=== PATIENT | male | born 1955 | race Caucasian/White ===

== ENCOUNTER 2016-04-30 09:26 | Emergency (ER) | payer MEDICARE, BC ==
[2016-04-30 09:58] VITALS: BP 132/87
--- NOTE | 2016-04-30 10:12 | UC ---
Throat Pain/Nasal Richard HPI - HPI Summary HPI Summary: Patient was treated for a sinus infection with doxycycline for 5 days. he feels like it was working but still having symptoms, head pressure, post nasal drip and full ears. - History of Current Complaint Chief Complaint: UCRespiratory Stated Complaint: SINUS COMPLAINT Time Seen by Provider: 04/30/16 09:49 Hx Obtained From: Patient Onset/Duration: Gradual Onset, Lasting Days Severity: Moderate Pain Intensity: 6 Pain Scale Used: 0-10 Numeric Cough: Productive Associated Signs & Symptoms: Positive: Dysphagia, Sinus Discomfort, Nasal Discharge - Epiglottits Risk Factors Epiglottis Risk Factors: Negative - Allergies/Home Medications Allergies/Adverse Reactions: Allergies Allergy/AdvReac Type Severity Reaction Status Date / Time Morphine Allergy Severe Headache Verified 04/30/16 09:49 Calcium Channel Blockers Allergy pounding Verified 04/30/16 09:49 heart Atomoxetine [From Strattera] AdvReac Severe confusion Verified 04/30/16 09:49 Tolterodine [From Detrol] AdvReac Severe hypotension Verified 04/30/16 09:49 Trazodone AdvReac Severe confusion Verified 04/30/16 09:49 Codeine AdvReac Intermediate chest Verified 04/30/16 09:49 strictures Oxycodone [From Percocet] AdvReac Agitation Verified 04/30/16 09:49 Serotonin Reuptake Inhibitors AdvReac Anxiety Verified 04/30/16 09:49 Tricyclic Antidepressants AdvReac chest Verified 04/30/16 09:49 strictures stimulant Allergy Anxiety Uncoded 04/30/16 09:49 PMH/Surg Hx/FS Hx/Imm Hx Previously Healthy: Yes Endocrine History Of: Denies: Diabetes, Thyroid Disease Cardiovascular History Of: Reports: Hypertension Denies: Cardiac Disorders, Pacemaker/ICD, Congestive Heart Failure Respiratory History Of: Denies: COPD, Asthma GI/ History Of: Reports: Gastroesophageal Reflux, Gastrointestinal Bleed, Gall Bladder Disease Denies: Ulcer, Renal Disease Neurological History Of: Denies: CVA, Dementia, Seizures Psychological History Of: Reports: Anxiety Other History Of: Negative For: Anticoagulant Therapy - Surgical History Surgical History: Yes Surgery Procedure, Year, and Place: cholecystectomy, shoulder, nose, hernia rpr 2016 - Family History Known Family History: Positive: Cardiac Disease - atherosclerosis, Hypertension , Diabetes, Other - hyperlipidemia, cancer - Social History Alcohol Use: None Substance Use Type: None, Prescribed Substance Use Comment - Amount & Last Used: hydromorphone 2mg po. Smoking Status (MU): Former Smoker Length of Time of Smoking/Using Tobacco: AGE [age] When Did the Patient Quit Smoking/Using Tobacco: AGE 21 - Immunization History Most Recent Influenza Vaccination: NOT LAST YEAR Most Recent Tetanus Shot: UNSURE Most Recent Pneumonia Vaccination: no Review of Systems Constitutional: Fatigue Skin: Negative Eyes: Negative ENT: Sore Throat, Ear Ache, Nasal Discharge Respiratory: Cough Cardiovascular: Negative Gastrointestinal: Negative Genitourinary: Negative Motor: Negative Neurovascular: Negative Musculoskeletal: Negative Neurological: Headache Psychological: Negative All Other Systems Reviewed And Are Negative: Yes Physical Exam Triage Information Reviewed: Yes Appearance: Well-Nourished, Ill-Appearing, Pain Distress Vital Signs: Initial Vital Signs Temp 98.2 F 04/30/16 09:50 Pulse 64 04/30/16 09:50 Resp 18 04/30/16 09:50 BP 132/87 04/30/16 09:50 Pulse Ox 100 04/30/16 09:50 Vital Signs Reviewed: Yes Eye Exam: Normal Eyes: Positive: Conjunctiva Clear ENT: Positive: Pharyngeal erythema - with posterior exudate, Nasal congestion, Nasal drainage, TM bulging, Tonsillar swelling Dental Exam: Normal Neck exam: Normal Neck: Positive: Supple, Nontender, No Lymphadenopathy Respiratory Exam: Normal Respiratory: Positive: Chest non-tender, Lungs clear, Normal breath sounds Cardiovascular Exam: Normal Cardiovascular: Positive: RRR, No Murmur, Pulses Normal Abdominal Exam: Normal Abdomen Description: Positive: Nontender, No Organomegaly, Soft Bowel Sounds: Positive: Present Musculoskeletal Exam: Normal Musculoskeletal: Positive: Strength Intact, ROM Intact, No Edema Neurological Exam: Normal Neurological: Positive: Alert, Muscle Tone Normal Psychological Exam: Normal Skin Exam: Normal Throat Pain/Nasal Course/Dx - Course Course Of Treatment: hx obtained, exam perfromed, medications reviewed, medications presrcibed, educated on manual sinus drainage. - Differential Dx/Diagnosis Differential Diagnosis/HQI/PQRI: Influenza, Laryngitis, Otitis Media, Pharyngitis, Sinusitis, Tonsillitis, URI Provider Diagnoses: sinusitis Discharge - Discharge Plan Condition: Stable Disposition: HOME Prescriptions: DOXYcycline CAP(*) [DOXYcycline 100MG CAP(*)] 100 mg PO BID #10 cap predniSONE TAB* [Deltasone TAB*] 40 mg PO DAILY #10 tab Patient Education Materials: Sinusitis (ED) Additional Instructions: I have extended the course of doxycycline for your infection. add the prednisone daily for the next 5 days. Increase your fluid intake and use tylenol for pain.
== END 2016-04-30 10:28 | disposition home or self-care (01) ==
LOC: UCEAST 09:26
DX: J32.9 Chronic sinusitis, unspecified (principal); Z88.6 Allergy status to analgesic agent; Z88.8 Allergy status to other drugs, medicaments and biological substances; Z87.891 Personal history of nicotine dependence
CPT/HCPCS: 99211; G0463

== ENCOUNTER 2016-05-16 22:04 | Emergency (ER) | payer MEDICARE, BC ==
--- NOTE | 2016-05-16 22:52 | ED ---
Lower Extremity - HPI Summary HPI Summary: The patient is a 60 year old male presenting to ED for atraumatic left posterior knee pain which began this afternoon. Denies vigorous activity or blunt trauma. Pain worse with weight bearing and ambulation. Admits to mild swelling. Denies fever, chest pain, shortness of breath, hemoptysis, lightheadedness, syncope, joint redness or swelling, rash. History of fatty liver, splenomegaly, HTN, GERD, PUD, chronic cough. S/p herniorrhaphy 2016. FH of multiple family members with pulmonary emboli. SH: Former smoker. No recreational substance use. - History of Current Complaint Chief Complaint: EDExtremityLower Stated Complaint: LEFT LEG PAIN Time Seen by Provider: 05/16/16 22:32 Pain Intensity: 2 - Allergies/Home Medications Allergies/Adverse Reactions: Allergies Allergy/AdvReac Type Severity Reaction Status Date / Time Morphine Allergy Severe Headache Verified 04/30/16 09:49 Calcium Channel Blockers Allergy pounding Verified 04/30/16 09:49 heart Atomoxetine [From Strattera] AdvReac Severe confusion Verified 04/30/16 09:49 Tolterodine [From Detrol] AdvReac Severe hypotension Verified 04/30/16 09:49 Trazodone AdvReac Severe confusion Verified 04/30/16 09:49 Codeine AdvReac Intermediate chest Verified 04/30/16 09:49 strictures Oxycodone [From Percocet] AdvReac Agitation Verified 04/30/16 09:49 Serotonin Reuptake Inhibitors AdvReac Anxiety Verified 04/30/16 09:49 Tricyclic Antidepressants AdvReac chest Verified 04/30/16 09:49 strictures stimulant Allergy Anxiety Uncoded 04/30/16 09:49 PMH/Surg Hx/FS Hx/Imm Hx Endocrine/Hematology History: Denies: Hx Anticoagulant Therapy, Hx Diabetes, Hx Thyroid Disease Cardiovascular History: Reports: Hx Hypertension Denies: Hx Congestive Heart Failure, Hx Pacemaker/ICD Respiratory History: Reports: Hx Chronic Bronchitis, Hx Seasonal Allergies, Other Respiratory Problems/Disorders - pleurisy, Swine flu Denies: Hx Asthma, Hx Chronic Obstructive Pulmonary Disease (COPD) GI History: Reports: Hx Diverticulosis, Hx Gall Bladder Disease, Hx Gastrointestinal Bleed, Hx Irritable Bowel Denies: Hx Ulcer History: Reports: Other Problems/Disorders - post-vasectomy syndrome, epididymitis Denies: Hx Renal Disease Musculoskeletal History: Reports: Hx Arthritis, Hx Tendonitis, Other Musculoskeletal History - repetitive motion injury, spasms from fibromyalgia Sensory History: Reports: Hx Contacts or Glasses Opthamlomology History: Reports: Hx Contacts or Glasses Neurological History: Reports: Other Neuro Impairments/Disorders - concussion with LOC, per pt: spinal cord injury during epidural block Denies: Hx Dementia, Hx Seizures Psychiatric History: Reports: Hx Anxiety, Hx Panic Disorder - with agoriphobia/ claustrophobia, Hx Post Traumatic Stress Disorder Denies: Hx Substance Abuse - Surgical History Surgery Procedure, Year, and Place: cholecystectomy, shoulder, nose, hernia rpr 2016 Hx Anesthesia Reactions: No - Immunization History Date of Tetanus Vaccine: PT STATES UNSURE Date of Influenza Vaccine: PT STATES UNSURE Infectious Disease History: No Infectious Disease History: Denies: Hx Clostridium Difficile, Hx Hepatitis, Hx Human Immunodeficiency Virus (HIV), Hx of Known/Suspected MRSA, Hx Shingles, Hx Tuberculosis, Hx Known/ Suspected VRE, Hx Known/Suspected VRSA, History Other Infectious Disease, Traveled Outside the [place] in Last 30 Days - Family History Known Family History: Positive: Cardiac Disease - atherosclerosis, Hypertension , Diabetes, Other - hyperlipidemia, cancer - Social History Alcohol Use: None Substance Use Type: Reports: None Substance Use Comment - Amount & Last Used: hydromorphone 2mg po. Hx Tobacco Use: Yes Smoking Status (MU): Former Smoker Length of Time of Smoking/Using Tobacco: AGE [age] Review of Systems Constitutional: Negative Cardiovascular: Negative Negative: Chest Pain Respiratory: Negative Negative: Shortness Of Breath Positive: Myalgia, Edema Skin: Negative Negative: Rash Neurological: Negative Negative: Weakness, Numbness All Other Systems Reviewed And Are Negative: Yes Physical Exam Triage Information Reviewed: Yes Vital Signs On Initial Exam: Initial Vitals Temp Pulse Resp BP Pulse Ox 97.8 F 58 16 132/73 100 05/16/16 22:06 05/16/16 22:06 05/16/16 22:06 05/16/16 22:06 05/16/16 22:06 Vital Signs Reviewed: Yes Appearance: Positive: Well-Appearing, No Pain Distress Skin: Positive: Warm, Skin Color Reflects Adequate Perfusion, Dry. Negative: Erythema @, Lymphangitis Head/Face: Positive: Normal Head/Face Inspection Eyes: Positive: Other: - Anicteric ENT: Positive: Hearing grossly normal Neck: Positive: Supple Respiratory/Lung Sounds: Positive: Clear to Auscultation, Breath Sounds Present. Negative: Decreased Breath Sounds, Rales, Rhonchi, Wheezes Cardiovascular: Positive: Normal, RRR - DP pulse 2+ bilaterally, S1, S2. Negative: Murmur, Rub, Tachycardia, Leg Edema Left, Leg Edema Right Musculoskeletal: Positive: Normal, Strength/ROM Intact, Pain @ - no reproducible left leg tenderness; no palpable or visible edema; no rash. Negative: Limited @, Interruption @, Brandon Sign Left, Brandon Sign Right, Edema Left, Edema Right Neurological: Positive: Normal, Sensory/Motor Intact, Reflexes Intact, NV Bundle Intact Distally, Facial Symmetry, Speech Normal Psychiatric: Positive: Normal AVPU Assessment: Alert Diagnostics - Vital Signs Vital Signs Temp Pulse Resp BP Pulse Ox 05/16/16 22:06 97.8 F 58 16 132/73 100 - Laboratory Lab Statement: Any lab studies that have been ordered have been reviewed, and results considered in the medical decision making process. Lower Extremity Course/Dx - Course Assessment/Plan: US demonstrates small fluid in left middle fossa likely mall Ortega's cyst; no DVT. Advised on conservative treatment with RICE and OTC analgesic. Advised to follow-up with PCP in 1-2 weeks. - Diagnoses Provider Diagnoses: Ortega's cyst of knee Discharge - Discharge Plan Condition: Stable Disposition: HOME Patient Education Materials: Bakers Cyst (ED) Referrals: Dragan Samuels MD [Primary Care Provider] - 1 Week
[2016-05-17 03:38] VITALS: BP 108/70
--- NOTE | 2016-05-17 07:42 | RAD ---
HISTORY: Left posterior knee pain COMPARISONS: None relevant TECHNIQUE: Multiple transverse and longitudinal ultrasound images were obtained of the left lower extremity from the level of the common femoral vein inferiorly through to the infrapopliteal veins using grayscale, color Doppler, and spectral Doppler imaging with and without compression and with augmentation. Comparison images were obtained of the contralateral common femoral vein. FINDINGS: VEINS: The venous system of the left lower extremity is compressible throughout its course, with normal flow on color Doppler imaging and normal response to augmentation on spectral Doppler imaging. SOFT TISSUES: Unremarkable. OTHER FINDINGS: There is a small amount of fluid within the popliteal fossa consistent with Ortega's cyst IMPRESSION: NO LEFT LOWER EXTREMITY DEEP VEIN THROMBOSIS
== END 2016-05-17 03:30 | disposition home or self-care (01) ==
LOC: ED 22:04
DX: M71.22 Synovial cyst of popliteal space [Baker], left knee (principal); Z87.891 Personal history of nicotine dependence; I10 Essential (primary) hypertension; K21.9 Gastro-esophageal reflux disease without esophagitis; Z88.5 Allergy status to narcotic agent; R60.9 Edema, unspecified
CPT/HCPCS: 99282

== ENCOUNTER 2017-01-29 18:56 | Emergency (ER) | payer MEDICARE, BC ==
[2017-01-29 23:07] LABS: Hematocrit 40 % (42-52); Hemoglobin 13.7 g/dl (14.0-18.0); Mean Corpuscular HGB Conc 35 g/dl (31-36); Mean Corpuscular Hemoglobin 31 pg (27-31); Mean Corpuscular Volume 89 fL (80-94); Mean Platelet Volume 8 um3 (7.4-10.4); Red Blood Count 4.44 10^6/ul (4.0-5.4); Red Cell Distribution Width 13 % (10.5-15); White Blood Count 4.4 10^3/ul (3.5-10.8)
[2017-01-29 23:20] LABS: ALT 22 U/L (7-52); AST 19 U/L (13-39); Albumin 3.9 g/dL (3.2-5.2); Alkaline Phosphatase 40 U/L (34-104); Anion Gap 5 mmol/L (2-11); BUN/Creatinine Ratio 13.6 (8-20); Blood Urea Nitrogen 14 mg/dL (6-24); C Reactive Protein < 1.00 mg/L (< 5.00); CO2 Carbon Dioxide 28 mmol/L (22-32); Calcium 8.8 mg/dL (8.6-10.3); Chloride 104 mmol/L (101-111); EGFR African American 93.8 (>60); EGFR Non-African American 72.9 (>60); Globulin 2.6 g/dL (2-4); Glucose 92 mg/dL (70-100); Lipase 26 U/L (11.0-82.0); Potassium 4.4 mmol/L (3.5-5.0); Sodium 137 mmol/L (133-145); Total Protein 6.5 g/dL (6.4-8.9)
[2017-01-29 23:31] LABS: Urine Bacteria Absent (Absent); Urine Bilirubin Negative (Negative); Urine Glucose Negative (Negative); Urine Nitrite Negative (Negative)
[2017-01-30 00:21] VITALS: BP 131/89
--- NOTE | 2017-01-30 01:56 | ED ---
Back Pain - HPI Summary HPI Summary: Patient presents to the ED with left sided flank pain. He states the pain has been present for 5 days and has been constant. Unable to palpate the area d/t exquisite tenderness. He has a history of back pain and sciatica which has been present for several days as well. He has never had pain in this area before. Denies knwon injury or trauma, but states he may have strained it while picking up his 500lb motorcycle several days before. He denies urinary symptoms or B/B dysfunction. Pain does not radiate. Pain is 5/10 and worse on palpation and better with rest. He had taken 3 Valium prior to a procedure yesterday and states the pain resolved with the medications. - History of Current Complaint Chief Complaint: EDFlankPain Stated Complaint: LT SIDE PAIN Time Seen by Provider: 01/29/17 23:18 Hx Obtained From: Patient Onset/Duration: Sudden Onset Onset/Duration: Started Minutes Ago Timing: Constant Back Pain Location: Is Discrete @ - left lower back pain, inferior to the left kidney Pain Intensity: 2 Pain Scale Used: 0-10 Numeric Character: Aching, Throbbing Alleviating Symptom(s): Rest, Position, Heat Associated Signs And Symptoms: Positive: Negative. Negative: Flank Pain, Bladder Incontinence, Bowel Incontinence, Pain with Weight Bearing - Risk Factors AAA Risk Factors: Negative TAD Risk Factors: Negative Cauda Equina Risk Factors: Negative Epidural Abscess Risk Factors: Negative - Allergies/Home Medications Allergies/Adverse Reactions: Allergies Allergy/AdvReac Type Severity Reaction Status Date / Time Morphine Allergy Severe Headache Verified 01/16/17 10:54 Calcium Channel Blockers Allergy pounding Verified 01/16/17 10:54 heart Atomoxetine [From Strattera] AdvReac Severe confusion Verified 01/16/17 10:54 Tolterodine [From Detrol] AdvReac Severe hypotension Verified 01/16/17 10:54 Trazodone AdvReac Severe confusion Verified 01/16/17 10:54 Codeine AdvReac Intermediate chest Verified 01/16/17 10:54 strictures Oxycodone [From Percocet] AdvReac Agitation Verified 01/16/17 10:54 Serotonin Reuptake Inhibitors AdvReac Anxiety Verified 01/16/17 10:54 Tricyclic Antidepressants AdvReac chest Verified 01/16/17 10:54 strictures PROPOFOL Allergy Altered Uncoded 01/16/17 10:54 Mental Status stimulant Allergy Anxiety Uncoded 01/16/17 10:54 PMH/Surg Hx/FS Hx/Imm Hx Previously Healthy: Yes Endocrine/Hematology History: Denies: Hx Anticoagulant Therapy, Hx Diabetes, Hx Thyroid Disease Cardiovascular History: Reports: Hx Hypertension Denies: Hx Congestive Heart Failure, Hx Pacemaker/ICD Respiratory History: Reports: Hx Chronic Bronchitis, Hx Seasonal Allergies, Other Respiratory Problems/Disorders - pleurisy, Swine flu Denies: Hx Asthma, Hx Chronic Obstructive Pulmonary Disease (COPD) GI History: Reports: Hx Diverticulosis, Hx Gall Bladder Disease, Hx Gastrointestinal Bleed, Hx Irritable Bowel, Other GI Disorders - GERD, IBS Denies: Hx Ulcer History: Reports: Other Problems/Disorders - post-vasectomy syndrome, epididymitis Denies: Hx Renal Disease Musculoskeletal History: Reports: Hx Arthritis, Hx Tendonitis, Other Musculoskeletal History - repetitive motion injury, spasms from fibromyalgia Sensory History: Reports: Hx Contacts or Glasses Denies: Hx Hearing Aid Opthamlomology History: Reports: Hx Contacts or Glasses Neurological History: Reports: Other Neuro Impairments/Disorders - concussion with LOC, per pt: spinal cord injury during epidural block Denies: Hx Dementia, Hx Seizures Psychiatric History: Reports: Hx Anxiety, Hx Panic Disorder - with agoriphobia/ claustrophobia, Hx Post Traumatic Stress Disorder Denies: Hx Substance Abuse - Surgical History Surgery Procedure, Year, and Place: cholecystectomy, RIGHT SHOULDER, DEVIASTED SEPTUM, SHOULDICE hernia rpr 2016-[employer] Hx Anesthesia Reactions: No - Immunization History Date of Tetanus Vaccine: PT STATES UNSURE Date of Influenza Vaccine: PT STATES UNSURE Hx Pertussis Vaccination: No Immunizations Up to Date: Unable to Obtain/Confirm Infectious Disease History: No Infectious Disease History: Denies: Hx Clostridium Difficile, Hx Hepatitis, Hx Human Immunodeficiency Virus (HIV), Hx of Known/Suspected MRSA, Hx Shingles, Hx Tuberculosis, Hx Known/ Suspected VRE, Hx Known/Suspected VRSA, History Other Infectious Disease, Traveled Outside the [place] in Last 30 Days - Family History Known Family History: Positive: Cardiac Disease - atherosclerosis, Hypertension , Diabetes, Other - hyperlipidemia, cancer - Social History Occupation: Unemployed Lives: With Family Alcohol Use: None Hx Substance Use: No Substance Use Type: Reports: None Substance Use Comment - Amount & Last Used: hydromorphone 2mg po. Hx Tobacco Use: Yes Smoking Status (MU): Former Smoker Length of Time of Smoking/Using Tobacco: AGE [age] Review of Systems Constitutional: Negative Negative: Fever, Chills, Fatigue Eyes: Negative Cardiovascular: Negative Respiratory: Negative Gastrointestinal: Negative Negative: Abdominal Pain, Vomiting, Diarrhea, Nausea Positive: no symptoms reported, see HPI Positive: Arthralgia - left lower back pain, inferior to the left kidney Skin: Negative Neurological: Negative All Other Systems Reviewed And Are Negative: Yes Physical Exam Triage Information Reviewed: Yes Vital Signs On Initial Exam: Initial Vitals Temp Pulse Resp BP Pulse Ox 98.4 F 65 18 136/100 98 01/29/17 19:06 01/29/17 19:06 01/29/17 19:06 01/29/17 19:06 01/29/17 19:06 Vital Signs Reviewed: Yes Appearance: Positive: Well-Appearing, Well-Nourished Skin: Positive: Warm, Skin Color Reflects Adequate Perfusion Head/Face: Positive: Normal Head/Face Inspection Eyes: Positive: EOMI, DAPHNE, Conjunctiva Clear Neck: Positive: Supple, No Lymphadenopathy Respiratory/Lung Sounds: Positive: Clear to Auscultation, Breath Sounds Present Cardiovascular: Positive: Normal, RRR, Pulses are Symmetrical in both Upper and Lower Extremities Musculoskeletal: Positive: Normal, Strength/ROM Intact Neurological: Positive: Sensory/Motor Intact, Alert, Oriented to Person Place, Time, Speech Normal Psychiatric: Positive: Normal - Crystal Coma Scale Coma Scale Total: 15 Diagnostics - Vital Signs Vital Signs Temp Pulse Resp BP Pulse Ox 01/30/17 00:19 71 18 131/89 100 01/29/17 19:06 98.4 F 65 18 136/100 98 - Laboratory Lab Results: Lab Results 01/29/17 01/29/17 01/29/17 Range/Units 22:34 22:34 22:34 WBC 4.4 (3.5-10.8) 10^3/ul RBC 4.44 (4.0-5.4) 10^6/ul Hgb 13.7 L (14.0-18.0) g/dl Hct 40 L (42-52) % MCV 89 (80-94) fL MCH 31 (27-31) pg MCHC 35 (31-36) g/dl RDW 13 (10.5-15) % Plt Count 154 (150-450) 10^3/ul MPV 8 (7.4-10.4) um3 Neut % (Auto) 59.2 (38-83) % Lymph % (Auto) 29.3 (25-47) % [place] % (Auto) 7.2 (1-9) % Eos % (Auto) 3.7 (0-6) % Baso % (Auto) 0.6 (0-2) % Absolute Neuts (auto) 2.6 (1.5-7.7) 10^3/ul Absolute Lymphs (auto) 1.3 (1.0-4.8) 10^3/ul Absolute Monos (auto) 0.3 (0-0.8) 10^3/ul Absolute Eos (auto) 0.2 (0-0.6) 10^3/ul Absolute Basos (auto) 0 (0-0.2) 10^3/ul Absolute Nucleated RBC 0 10^3/ul Nucleated RBC % 0 Sodium 137 (133-145) mmol/L Potassium 4.4 (3.5-5.0) mmol/L Chloride 104 (101-111) mmol/L Carbon Dioxide 28 (22-32) mmol/L Anion Gap 5 (2-11) mmol/L BUN 14 (6-24) mg/dL Creatinine 1.03 (0.67-1.17) mg/dL Est GFR ( Amer) 93.8 (>60) Est GFR (Non-Af Amer) 72.9 (>60) BUN/Creatinine Ratio 13.6 (8-20) Glucose 92 (70-100) mg/dL Lactic Acid 0.6 (0.5-2.0) mmol/L Calcium 8.8 (8.6-10.3) mg/dL Total Bilirubin 0.50 (0.2-1.0) mg/dL AST 19 (13-39) U/L ALT 22 (7-52) U/L Alkaline Phosphatase 40 (34-104) U/L C-Reactive Protein < 1.00 (< 5.00) mg/L Total Protein 6.5 (6.4-8.9) g/dL Albumin 3.9 (3.2-5.2) g/dL Globulin 2.6 (2-4) g/dL Albumin/Globulin Ratio 1.5 (1-3) Lipase 26 (11.0-82.0) U/L Urine Color Urine Appearance Urine pH (5-9) Ur Specific [place] (1.010-1.030) Urine Protein (Negative) Urine Ketones (Negative) Urine Blood (Negative) Urine Nitrate (Negative) Urine Bilirubin (Negative) Urine Urobilinogen (Negative) Ur Leukocyte Esterase (Negative) Urine WBC (Auto) (Absent) Urine RBC (Auto) (Absent) Urine Bacteria (Absent) Urine Glucose (Negative) 01/29/17 Range/Units 23:15 WBC (3.5-10.8) 10^3/ul RBC (4.0-5.4) 10^6/ul Hgb (14.0-18.0) g/dl Hct (42-52) % MCV (80-94) fL MCH (27-31) pg MCHC (31-36) g/dl RDW (10.5-15) % Plt Count (150-450) 10^3/ul MPV (7.4-10.4) um3 Neut % (Auto) (38-83) % Lymph % (Auto) (25-47) % [place] % (Auto) (1-9) % Eos % (Auto) (0-6) % Baso % (Auto) (0-2) % Absolute Neuts (auto) (1.5-7.7) 10^3/ul Absolute Lymphs (auto) (1.0-4.8) 10^3/ul Absolute Monos (auto) (0-0.8) 10^3/ul Absolute Eos (auto) (0-0.6) 10^3/ul Absolute Basos (auto) (0-0.2) 10^3/ul Absolute Nucleated RBC 10^3/ul Nucleated RBC % Sodium (133-145) mmol/L Potassium (3.5-5.0) mmol/L Chloride (101-111) mmol/L Carbon Dioxide (22-32) mmol/L Anion Gap (2-11) mmol/L BUN (6-24) mg/dL Creatinine (0.67-1.17) mg/dL Est GFR ( Amer) (>60) Est GFR (Non-Af Amer) (>60) BUN/Creatinine Ratio (8-20) Glucose (70-100) mg/dL Lactic Acid (0.5-2.0) mmol/L Calcium (8.6-10.3) mg/dL Total Bilirubin (0.2-1.0) mg/dL AST (13-39) U/L ALT (7-52) U/L Alkaline Phosphatase (34-104) U/L C-Reactive Protein (< 5.00) mg/L Total Protein (6.4-8.9) g/dL Albumin (3.2-5.2) g/dL Globulin (2-4) g/dL Albumin/Globulin Ratio (1-3) Lipase (11.0-82.0) U/L Urine Color Yellow Urine Appearance Clear Urine pH 7.0 (5-9) Ur Specific [place] 1.011 (1.010-1.030) Urine Protein Negative (Negative) Urine Ketones Negative (Negative) Urine Blood 1+ H (Negative) Urine Nitrate Negative (Negative) Urine Bilirubin Negative (Negative) Urine Urobilinogen Negative (Negative) Ur Leukocyte Esterase Negative (Negative) Urine WBC (Auto) Trace(0-5/hpf) (Absent) Urine RBC (Auto) Trace(0-2/hpf) (Absent) Urine Bacteria Absent (Absent) Urine Glucose Negative (Negative) Result Diagrams: 01/29/17 22:34 01/29/17 22:34 Lab Statement: Any lab studies that have been ordered have been reviewed, and results considered in the medical decision making process. Back Pain Course/Dx - Course Course Of Treatment: Patient presents with left lower back pain, inferior to the left kidney. No CVA tenderness on exam. CT abd/pelvis shows no hydronephrosis or kidney stone. UA WNL. Patient made aware of results and this is likely muscular strain d/t lcoation of the injury. Patient agrees and is OK with discharge. He has valium at home for chronic back pain and will take as needed until symptoms improve. Ibuprofen and moist heat also encouraged. - Diagnoses Differential Diagnosis/HQI/PQRI: Positive: Strain, Sprain Provider Diagnoses: Muscle strain Discharge - Discharge Plan Condition: Stable Disposition: HOME Patient Education Materials: Muscle Strain (ED), Lower Back Exercises (ED) Referrals: Dragan Samuels MD [Primary Care Provider] - Additional Instructions: I feel this is a muscle strain Your blood work and urine is normal I recommend you take your at home Valium for any discomfort at this time Ibuprofen 600mg three times daily Moist heat to the area as much as possible
--- NOTE | 2017-01-30 07:45 | RAD ---
CLINICAL HISTORY: Left flank pain COMPARISON: November 28, 2015 TECHNIQUE: Multiple contiguous axial CT scans were obtained of the abdomen and pelvis, without intravenous contrast enhancement. Coronal and sagittal multiplanar reformations are submitted for review. Oral contrast was not administered. FINDINGS: The study is limited by the lack of intravenous contrast. This limits evaluation of the solid organs and vasculature. LUNG BASES: The lung bases are clear. LIVER: The liver is normal in shape, size, contour, and attenuation. BILE DUCTS: There is no intrahepatic or extrahepatic biliary dilatation. GALLBLADDER: The gallbladder is not visualized. Surgical clips are noted in the gallbladder fossa. PANCREAS: The pancreas is normal, without mass or ductal dilatation. SPLEEN: The spleen is homogeneously enlarged measuring 16 cm in long axis. UPPER GI TRACT: Evaluation of the gastrointestinal tract is limited by incomplete gastric distention. The upper GI tract is unremarkable. SMALL BOWEL AND MESENTERY: The small bowel is normal in contour, course, and caliber. There is no obstruction or dilatation. COLON: The colon is normal in contour, course, caliber. There is no pericolonic inflammatory change. ADRENALS: Normal bilaterally. KIDNEYS: The kidneys are normal in shape, size, contour, and axis. There is no hydronephrosis or nephrolithiasis. BLADDER: The bladder is smooth in contour. PELVIC ORGANS: The prostate is mildly enlarged. The seminal vesicles are symmetric. AORTA: The aorta is normal. IVC: Unremarkable LYMPH NODES: There is no lymphadenopathy by size criteria. ABDOMINAL WALL: There is no evidence for abdominal wall hernia. There is postsurgical change to the left inguinal region. BONES AND SOFT TISSUES: There are mild diffuse degenerative changes. OTHER: None IMPRESSION: 1. SPLENOMEGALY. 2. NO HYDRONEPHROSIS OR NEPHROLITHIASIS
== END 2017-01-30 00:22 | disposition home or self-care (01) ==
LOC: ED 18:56
DX: S39.012A Strain of muscle, fascia and tendon of lower back, initial encounter (principal); M54.5 Low back pain; X50.9XXA Other and unspecified overexertion or strenuous movements or postures, initial encounter; Y93.9 Activity, unspecified; Y92.9 Unspecified place or not applicable; Z87.891 Personal history of nicotine dependence
CPT/HCPCS: 36415; 74176; 80053; 81003; 81015; 83605; 83690; 85025; 86140; 99284

== ENCOUNTER 2017-04-21 09:59 | Emergency (ER) | payer MEDICARE, BC, OTHER ==
[2017-04-21 10:27] VITALS: BP 149/80
--- NOTE | 2017-04-21 11:19 | UC ---
Respiratory Complaint HPI - HPI Summary HPI Summary: 61 yo Wm c/o severe cough since last night associated with severe pleuritic CP w /o sputum. Denies f/c/sore throat but feels like "a MAC truck hit him" and his temp is running higher than his "usual 95F" - History of Current Complaint Chief Complaint: UCRespiratory Stated Complaint: COUGH/CONGESTION Time Seen by Provider: 04/21/17 10:38 Hx Obtained From: Patient Onset/Duration: Sudden Onset Severity Initially: Moderate Character: Cough: Nonproductive Associated Signs And Symptoms: Positive: Negative - Allergies/Home Medications Allergies/Adverse Reactions: Allergies Allergy/AdvReac Type Severity Reaction Status Date / Time Morphine Allergy Severe Headache Verified 04/21/17 10:13 Calcium Channel Blockers Allergy pounding Verified 04/21/17 10:13 heart Atomoxetine [From Strattera] AdvReac Severe confusion Verified 04/21/17 10:13 Tolterodine [From Detrol] AdvReac Severe hypotension Verified 04/21/17 10:13 Trazodone AdvReac Severe confusion Verified 04/21/17 10:13 Codeine AdvReac Intermediate chest Verified 04/21/17 10:13 strictures Oxycodone [From Percocet] AdvReac Agitation Verified 04/21/17 10:13 Serotonin Reuptake Inhibitors AdvReac Anxiety Verified 04/21/17 10:13 Tricyclic Antidepressants AdvReac chest Verified 04/21/17 10:13 strictures PROPOFOL Allergy Altered Uncoded 04/21/17 10:13 Mental Status stimulant Allergy Anxiety Uncoded 04/21/17 10:13 Home Medications: Home Medications Pseudoephedrine-Guaifenesin [Mucinex D 60-600 mg] 1 tab PO BID PRN 04/21/17 [ History Confirmed 04/21/17] PMH/Surg Hx/FS Hx/Imm Hx - Additional Past Medical History Additional PMH: PARTIAL EPIGLOTTIC PARESIS per previous ENT dx Neurological History: Other - DYSTONIA Other Neurological History: dystonia Psychological History: Post Traumatic Stress Disorder Other History Of: Negative For: Anticoagulant Therapy - Surgical History Surgical History: Yes Surgery Procedure, Year, and Place: cholecystectomy, RIGHT SHOULDER, DEVIASTED SEPTUM, SHOULDICE hernia rpr 2016-[employer] S[employer]URES - Family History Known Family History: Positive: Cardiac Disease - atherosclerosis, Hypertension , Diabetes, Other - hyperlipidemia, cancer - Social History Alcohol Use: None Substance Use Type: Prescribed Substance Use Comment - Amount & Last Used: YESTERDAY 1/2 VALIUM AND 1/2 DILAUDED FOR BACK PAIN Smoking Status (MU): Former Smoker Length of Time of Smoking/Using Tobacco: AGE [age] When Did the Patient Quit Smoking/Using Tobacco: AGE 21 - Immunization History Most Recent Influenza Vaccination: NOT LAST YEAR Most Recent Tetanus Shot: UNSURE Most Recent Pneumonia Vaccination: no Review of Systems Constitutional: Negative Skin: Negative Eyes: Negative ENT: Negative Respiratory: Cough Cardiovascular: Negative Gastrointestinal: Negative Genitourinary: Negative Motor: Negative Neurovascular: Negative Musculoskeletal: Negative Neurological: Negative Psychological: Negative All Other Systems Reviewed And Are Negative: Yes Physical Exam Triage Information Reviewed: Yes Appearance: No Pain Distress Vital Signs: Initial Vital Signs Temp 37.9 C 04/21/17 10:20 Pulse 88 04/21/17 10:20 Resp 16 04/21/17 10:20 BP 149/80 04/21/17 10:20 Pulse Ox 99 04/21/17 10:20 Vital Signs Reviewed: Yes Eye Exam: Normal ENT Exam: Normal ENT: Positive: Hearing grossly normal, Pharyngeal erythema, Tonsillar swelling, Sinus tenderness. Negative: Nasal congestion, Nasal drainage Dental Exam: Normal Neck exam: Normal Neck: Positive: 1 Respiratory Exam: Normal Respiratory: Positive: Lungs clear, Normal breath sounds, No respiratory distress. Negative: Crackles, Rhonchi, Stridor, Wheezing Cardiovascular Exam: Normal Cardiovascular: Positive: RRR Abdominal Exam: Normal Musculoskeletal Exam: Normal Neurological Exam: Normal Psychological Exam: Normal Skin Exam: Normal UC Diagnostic Evaluation - Laboratory O2 Sat by Pulse Oximetry: 99 Respiratory Course/Dx - Course Course Of Treatment: Pt has partial paresis of epiglottis and extensive h/o reactive cough and dystonia with ENT and neuro specialist involvement. Neg Rapid strep and flu. Continue current tx of Mucinex and ASA at home and f/u with specialist or XR if sx of PNA (i.e. sputum, fever and SOB) - Differential Dx/Diagnosis Provider Diagnoses: reactive cough, upper airway cough syndrome Discharge - Discharge Plan Condition: Stable Disposition: HOME Patient Education Materials: Sinusitis (ED) Referrals: Dragan Samuels MD [Primary Care Provider] - Additional Instructions: as tolerated
== END 2017-04-21 11:55 | disposition home or self-care (01) ==
LOC: UCEAST 09:59
DX: R05 Cough (principal); J38.00 Paralysis of vocal cords and larynx, unspecified; G24.9 Dystonia, unspecified; F43.10 Post-traumatic stress disorder, unspecified; Z88.5 Allergy status to narcotic agent; Z88.8 Allergy status to other drugs, medicaments and biological substances; Z87.891 Personal history of nicotine dependence
CPT/HCPCS: 87502; 87651; 99211; G0463

== ENCOUNTER 2017-04-21 17:31 | Emergency (ER) | payer MEDICARE, BC ==
[2017-04-21] MEDS ORDERED: Acetaminophen ADULT LIQ* 650 MG/20.3 ML UDC PO ONE (18:27)
[2017-04-21] MEDS ORDERED: Benzonatate CAP* 100 MG PO ONE ×3 (18:27→22:33)
--- NOTE | 2017-04-21 18:28 | RAD ---
INDICATION: Shortness of breath, wheezing, cough. Fever. COMPARISON: January 29, 2017 CT abdomen. February 09, 2016 chest radiograph. July 15, [address] REPORT: Mildly elevated lung volumes. LEFT nipple shadow noted based on correlation with prior CT. Minimal linear atelectasis at the LEFT costophrenic angle. No alveolar consolidation concerning for pneumonia, suspicious focal pulmonary lesion, pleural effusion, pneumothorax. The heart, pulmonary vasculature, and mediastinal contours are unremarkable. IMPRESSION: Mildly elevated lung volumes suggest potential obstructive lung disease. No evidence for acute intrathoracic disease.
[2017-04-21 18:32] LABS: ABS Basophils 0 10^3/ul (0-0.2); ABS Eosinophils 0.2 10^3/ul (0-0.6); ABS Lymphocytes 0.2 10^3/ul (1.0-4.8); ABS Monocytes 0.4 10^3/ul (0-0.8); ABS Neutrophils 3.2 10^3/ul (1.5-7.7); ABS Nucleated RBC 0 10^3/ul; Eosinophil % 4.1 % (0-6); Hematocrit 39 % (42-52); Hemoglobin 13.4 g/dl (14.0-18.0); Lymphocyte % 6.1 % (25-47); Mean Corpuscular HGB Conc 34 g/dl (31-36); Mean Corpuscular Hemoglobin 31 pg (27-31); Mean Corpuscular Volume 89 fL (80-94); Mean Platelet Volume 8 um3 (7.4-10.4); Nucleated Red Blood Cells % 0; Platelet Count 129 10^3/ul (150-450); Red Blood Count 4.39 10^6/ul (4.0-5.4); Red Cell Distribution Width 13 % (10.5-15)
[2017-04-21 18:46] LABS: EGFR Non-African American 75.5 (>60)
[2017-04-21] MEDS: NS 0.9% 1000 ML* 2,000 ML IV ONE ×2 (18:50→19:00)
--- NOTE | 2017-04-21 19:45 | ED ---
Influenza-Like Illness - HPI Summary HPI Summary: Patient presents to the ED with CC of influenza like symptoms. Endorses body aches, fever, headache, went to [facility] [address], states he was told no kimberli flu, believes he does have the flu. took nasonex, asa at noon. cough and chest congestion is terrible per pt. asked for a bronchodilators and was denied at [facility] [address]. states last time he felt like this he had h1n1, and pneumonia, was hospitalized for a week at [facility] [place]. He is very anxious, states anything that could go wrong will go wrong and is concerned he has to go to the ICU. Temperature on arrival 103.1. HR at 112. He states he has never had a termperature this high. Denies abd symptoms including N/V/C/D. Feels as though he is dehydrated. - History of Current Complaint Chief Complaint: EDFluSymptoms Time Seen by Provider: 04/21/17 17:51 Hx Obtained From: Patient Onset/Duration: Sudden Onset Severity: Moderate Associated Signs & Symptoms: T Max - 103.1, F/C, Myalgia, Cough, Sore Throat, Nasal Congestion, Headache Related Hx: Possible Flu/Infectious Exposure - Risk Factors Influenza Risk Factors: Negative - Allergy/Home Medications Allergies/Adverse Reactions: Allergies Allergy/AdvReac Type Severity Reaction Status Date / Time Morphine Allergy Severe Headache Verified 04/21/17 10:13 Calcium Channel Blockers Allergy pounding Verified 04/21/17 10:13 heart Atomoxetine [From Strattera] AdvReac Severe confusion Verified 04/21/17 10:13 Tolterodine [From Detrol] AdvReac Severe hypotension Verified 04/21/17 10:13 Trazodone AdvReac Severe confusion Verified 04/21/17 10:13 Codeine AdvReac Intermediate chest Verified 04/21/17 10:13 strictures Oxycodone [From Percocet] AdvReac Agitation Verified 04/21/17 10:13 Serotonin Reuptake Inhibitors AdvReac Anxiety Verified 04/21/17 10:13 Tricyclic Antidepressants AdvReac chest Verified 04/21/17 10:13 strictures PROPOFOL Allergy Altered Uncoded 04/21/17 10:13 Mental Status stimulant Allergy Anxiety Uncoded 04/21/17 10:13 PMH/Surg Hx/FS Hx/Imm Hx Previously Healthy: Yes Endocrine/Hematology History: Denies: Hx Anticoagulant Therapy, Hx Diabetes, Hx Thyroid Disease Cardiovascular History: Reports: Hx Hypertension Denies: Hx Congestive Heart Failure, Hx Pacemaker/ICD Respiratory History: Reports: Hx Chronic Bronchitis, Hx Seasonal Allergies, Other Respiratory Problems/Disorders - pleurisy, Swine flu Denies: Hx Asthma, Hx Chronic Obstructive Pulmonary Disease (COPD) GI History: Reports: Hx Diverticulosis, Hx Gall Bladder Disease, Hx Gastrointestinal Bleed, Hx Irritable Bowel, Other GI Disorders - GERD, IBS Denies: Hx Ulcer History: Reports: Other Problems/Disorders - post-vasectomy syndrome, epididymitis Denies: Hx Renal Disease Musculoskeletal History: Reports: Hx Arthritis, Hx Tendonitis, Other Musculoskeletal History - repetitive motion injury, spasms from fibromyalgia Sensory History: Reports: Hx Contacts or Glasses Denies: Hx Hearing Aid Opthamlomology History: Reports: Hx Contacts or Glasses Neurological History: Reports: Other Neuro Impairments/Disorders - concussion with LOC, per pt: spinal cord injury during epidural block Denies: Hx Dementia, Hx Seizures Psychiatric History: Reports: Hx Anxiety, Hx Panic Disorder - with agoriphobia/ claustrophobia, Hx Post Traumatic Stress Disorder Denies: Hx Substance Abuse - Surgical History Surgery Procedure, Year, and Place: cholecystectomy, RIGHT SHOULDER, DEVIASTED SEPTUM, SHOULDICE hernia rpr 2016-[employer] Hx Anesthesia Reactions: No - Immunization History Date of Tetanus Vaccine: UTD Date of Influenza Vaccine: NO Hx Pertussis Vaccination: No Immunizations Up to Date: Unable to Obtain/Confirm Infectious Disease History: No Infectious Disease History: Reports: Hx Shingles - 36 YEARS SYDNIE Denies: Hx Clostridium Difficile, Hx Hepatitis, Hx Human Immunodeficiency Virus (HIV), Hx of Known/Suspected MRSA, Hx Tuberculosis, Hx Known/Suspected VRE , Hx Known/Suspected VRSA, History Other Infectious Disease, Traveled Outside the [place] in Last 30 Days - Family History Known Family History: Positive: Cardiac Disease - atherosclerosis, Hypertension , Diabetes, Other - hyperlipidemia, cancer - Social History Occupation: Employed Full-time Lives: With Family Alcohol Use: None Hx Substance Use: No Substance Use Type: Reports: None Substance Use Comment - Amount & Last Used: YESTERDAY 1/2 VALIUM AND 1/2 DILAUDED FOR BACK PAIN Hx Tobacco Use: Yes Smoking Status (MU): Former Smoker Length of Time of Smoking/Using Tobacco: AGE [age] Review of Systems Positive: Fever, Chills, Fatigue, Skin Diaphoresis Eyes: Negative Positive: Sore Throat, Nasal Discharge Positive: Cough Negative: Abdominal Pain, Vomiting, Diarrhea, Nausea Positive: no symptoms reported, see HPI Positive: Myalgia Skin: Negative Positive: Headache Psychological: Normal All Other Systems Reviewed And Are Negative: Yes Physical Exam Triage Information Reviewed: Yes Vital Signs On Initial Exam: Initial Vitals Temp Pulse Resp BP Pulse Ox 103.1 F 112 19 155/89 98 04/21/17 17:32 04/21/17 17:32 04/21/17 17:32 04/21/17 17:32 04/21/17 17:32 Vital Signs Reviewed: Yes Appearance: Positive: Ill-Appearing, Pain Distress Skin: Positive: Warm, Diaphoretic Head/Face: Positive: Normal Head/Face Inspection Eyes: Positive: EOMI, DAPHNE, Conjunctiva Clear Neck: Positive: Supple, No Lymphadenopathy Respiratory/Lung Sounds: Positive: Clear to Auscultation, Breath Sounds Present Cardiovascular: Positive: RRR, Pulses are Symmetrical in both Upper and Lower Extremities Abdomen Description: Positive: Nontender, No Organomegaly, Soft Musculoskeletal: Positive: Normal, Strength/ROM Intact Neurological: Positive: Speech Normal Psychiatric: Positive: Affect/Mood Appropriate, Anxious AVPU Assessment: Alert - Crystal Coma Scale Coma Scale Total: 15 Diagnostics - Vital Signs Vital Signs Temp Pulse Resp BP Pulse Ox 04/21/17 19:35 102.1 F 04/21/17 17:32 103.1 F 112 19 155/89 98 - Laboratory Lab Results: Lab Results 04/21/17 04/21/17 04/21/17 Range/Units 18:10 18:10 18:10 WBC 4.0 (3.5-10.8) 10^3/ul RBC 4.39 (4.0-5.4) 10^6/ul Hgb 13.4 L (14.0-18.0) g/dl Hct 39 L (42-52) % MCV 89 (80-94) fL MCH 31 (27-31) pg MCHC 34 (31-36) g/dl RDW 13 (10.5-15) % Plt Count 129 L (150-450) 10^3/ul MPV 8 (7.4-10.4) um3 Neut % (Auto) 80.6 (38-83) % Lymph % (Auto) 6.1 L (25-47) % Kidder % (Auto) 9.0 (1-9) % Eos % (Auto) 4.1 (0-6) % Baso % (Auto) 0.2 (0-2) % Absolute Neuts (auto) 3.2 (1.5-7.7) 10^3/ul Absolute Lymphs (auto) 0.2 L (1.0-4.8) 10^3/ul Absolute Monos (auto) 0.4 (0-0.8) 10^3/ul Absolute Eos (auto) 0.2 (0-0.6) 10^3/ul Absolute Basos (auto) 0 (0-0.2) 10^3/ul Absolute Nucleated RBC 0 10^3/ul Nucleated RBC % 0 ESR 10 (0-20) mm/Hr Sodium 133 (133-145) mmol/L Potassium 3.9 (3.5-5.0) mmol/L Chloride 101 (101-111) mmol/L Carbon Dioxide 27 (22-32) mmol/L Anion Gap 5 (2-11) mmol/L BUN 12 (6-24) mg/dL Creatinine 1.00 (0.67-1.17) mg/dL Est GFR ( Amer) 97.1 (>60) Est GFR (Non-Af Amer) 75.5 (>60) BUN/Creatinine Ratio 12.0 (8-20) Glucose 101 H (70-100) mg/dL Lactic Acid 1.0 (0.5-2.0) mmol/L Calcium 8.6 (8.6-10.3) mg/dL Total Bilirubin 0.50 (0.2-1.0) mg/dL AST 21 (13-39) U/L ALT 19 (7-52) U/L Alkaline Phosphatase 48 (34-104) U/L C-Reactive Protein 9.17 H (< 5.00) mg/L Total Protein 6.5 (6.4-8.9) g/dL Albumin 3.9 (3.2-5.2) g/dL Globulin 2.6 (2-4) g/dL Albumin/Globulin Ratio 1.5 (1-3) Lipase 24 (11.0-82.0) U/L Result Diagrams: 04/21/17 18:10 04/21/17 18:10 Lab Statement: Any lab studies that have been ordered have been reviewed, and results considered in the medical decision making process. Re-Evaluation - Re-Evaluation First Eval Change: Unchanged - tylenol did not break fever - 103.1 to 102.1 Second Eval Change: Improved - Feels improved since the Toradol, however remains feeling dehydrated despite 2 L fluids, requesting 1L more fluids Third Eval Change: Improved - flonase given with improvement of nasal congestion Flu Symptom Course/Dx - Course Course Of Treatment: During the course of treatment, labs obtained. No WBC and other labs all negative. Temp is 103.1 on arrival and reduced to 102.1 after 650mg liquid tylenol. Chest xray negative. IMPRESSION: Mildly elevated lung volumes suggest potential obstructive lung disease. No. evidence for acute intrathoracic disease. Flu repeated from this morning and awaiting results of test. 2L fluids given. Tessalon given for cough. I have given flonase and toradol per request and he is feeling improved but requesting 1L fluids more prior to discharge. I have scripted tessalon to his pharmacy and given 200mg here as well with improvement of cough. I have signed out to [facility] pending flu results and tamiflu will be given regardless of result d/t new CDC guidelines for flu symptoms. - Diagnoses Provider Diagnoses: Viral illness Discharge - Discharge Plan Condition: Stable Disposition: HOME Prescriptions: Benzonatate CAP* [Tessalon 100 MG CAP*] 100 mg PO TID #21 cap Oseltamivir CAP* [Tamiflu CAP*] 75 mg PO BID #9 cap Patient Education Materials: Viral Syndrome (ED) Referrals: Dragan Samuels MD [Primary Care Provider] - 3 Days Additional Instructions: Ibuprofen and tylenol intermittenlty for fevers Rest Gatorade and water Tamiflu as directed x 4 days Tessalon for cough - up to three times daily Follow up with your PCP in 2-3 days
[2017-04-21] MEDS ORDERED: Ketorolac INJ* 30 MG/ML 1 ML VIAL IV PUSH ONE (19:53)
[2017-04-21] MEDS ORDERED: Oseltamivir CAP* 75 MG PO ONE (20:28)
[2017-04-21] MEDS ORDERED: Oseltamivir SUSP* 6 MG/ML ORAL SYRINGE PO ONE (20:29)
[2017-04-21] MEDS ORDERED: Ketorolac INJ* 60 MG/2 ML VIAL ONE (20:49)
[2017-04-21 21:42] LABS: Urine Appearance Clear; Urine Blood 1+ (Negative); Urine Color Straw; Urine Ketones Negative (Negative); Urine Protein Negative (Negative); Urine Specific Gravity 1.006 (1.010-1.030); Urine Urobilinogen Negative (Negative)
--- NOTE | 2017-04-21 22:28 | ED ---
Progress - Progress Note Progress Note: Sign out from Jennifer Peacock PA-C. Pt presents today with fever, COREA, general body aches and fatigue w/ decreased appetite. This hit him "like a ton of bricks" last night at 21:00. Associated sx of cough, ST, sneezing and chest hurts w/ cough. Still tolerating PO, urinating and moving bowels well - denies ab pain and no rash. Did not received influenza vaccine this year as he reports he's gotten sick in the past despite trying it. Overall healthy although he's struggled w/ stress throughout his life - has made lifestyle changes to improve effects of stress on his body (cardiac pathology, pleurisy, tendonitis) but still takes clonazepam at night to reduce night terrors. Admits he was out in the cold (weather has been in the teens and single digits) for 2 hours prior to sx starting - did not cover his face and was breathing in cold air entire time. When he came in, his temp was 103+F and HR 112 - BP stable at 155/89. After receiving 2L of fluids, acetaminophen his HR dropped to 80's and temp to 100+F. He then received toradol for a splitting COREA. He now reports although he's not pain free, he feels much better than when he arrived. Labs are unremarkable for sepsis. Influenza swabs negative. He will be d/c'd w/ tamiflu and to rest, hydrate. CXR did report COPD findings. Pt admits to h/o smoking from 11 y.o. - 21 y.o., sometimes 2.5 packs per day. He has no h/o COPD but will f/u w/ PCP for PFT. Breathing well here, pulse ox normal and chest clear. No further pulm tx required today. He does use flonase nasal and was given this here tonight. Was also provided with shabana mcdonough - cough is less since. GEN: A&O, NAD, resting comfortably on stretcher HEENT: mucosa moist, neck supple CARDIAC: S1/S2 RRR, no murmur, no rub PULM: breathing easily, CTA B/L AB: + BS, soft, NTTP INTEG: skin clear VASCULAR: no LE edema NEURO: CN II-XII grossly intact; (-) Kernig; (-) Brudzinski PSYCH: anxious, hyperverbal, pleasant Assessment: clinical dx of influenza based on CDC guidelines - no other source of infection identified on exam today Plan: complete tamiflu and supportive care - if worse, return to ED Course/Dx - Course Course Of Treatment: During the course of treatment, labs obtained. No WBC and other labs all negative. Temp is 103.1 on arrival and reduced to 102.1 after 650mg liquid tylenol. Chest xray negative. IMPRESSION: Mildly elevated lung volumes suggest potential obstructive lung disease. No. evidence for acute intrathoracic disease. Flu repeated from this morning and negative. 2L fluids given. Tessalon given for cough.
[2017-04-21 22:48] VITALS: BP 123/64
[2017-04-22] MEDS ORDERED: Fluticasone NASAL SPRAY 50MCG* 16 gm SPRAY BTL BOTH NARES SCH (09:00)
== END 2017-04-21 22:51 | disposition home or self-care (01) ==
LOC: ED 17:31
DX: B34.9 Viral infection, unspecified (principal); R05 Cough; J02.9 Acute pharyngitis, unspecified; R09.81 Nasal congestion; R51 Headache; R50.9 Fever, unspecified; Z87.891 Personal history of nicotine dependence
CPT/HCPCS: 36415; 71046; 80053; 81003; 81015; 83605; 83690; 85025; 85652; 86140; 86308; 87040; 93005; 96360; 99284; A9270-GY; J1885

== ENCOUNTER 2018-04-27 16:21 | Emergency (ER) | payer BC, MEDICARE, OTHER ==
[2018-04-27 16:41] VITALS: BP 128/79
--- NOTE | 2018-04-27 17:14 | UC ---
Abdominal Pain Male HPI - HPI Summary HPI Summary: 62 yo male presents with diarrhea. He tells me that over the last week he has had issues with diarrhea. On 04/21 he had many episodes of loose stools and on 04/22 had diarrhea. This resolved for a day, but then returned on 04/24. Since that time has had loose stools and/or watery diarrhea with lower abdominal cramping. He says that he has well water at home and has had issues with giradia in the past - this feels the same. He also mentions that his lower back is "acting up" due to the constant sitting and bowel movements. He has chronic low back pain and tells me that he is on disability for this. When he gets flare ups he usually sees his PCP for pain medication or valium, but was unable to get an appointment for 2 weeks. Denies fever, chills, SOB, chest pain, dysuria, blood in stool, or loss of bowel /bladder function. - History of Current Complaint Chief Complaint: UCGI Stated Complaint: BACK PAIN Time Seen by Provider: 04/27/18 16:41 Hx Obtained From: Patient Onset/Duration: Sudden Onset Severity Initially: Severe Severity Currently: Severe Pain Intensity: 8 Pain Scale Used: 0-10 Numeric - Allergies/Home Medications Allergies/Adverse Reactions: Allergies Allergy/AdvReac Type Severity Reaction Status Date / Time codeine Allergy Severe chest Verified 04/27/18 17:00 strictures tolterodine [From Detrol] Allergy Severe hypotension Verified 04/27/18 17:00 Tricyclic Compounds Allergy Severe chest Verified 04/27/18 17:00 strictures atomoxetine [From Strattera] Allergy Intermediate confusion Verified 04/27/18 17 :00 morphine Allergy Intermediate Headache Verified 04/27/18 17:00 oxycodone Allergy Intermediate Agitation Verified 04/27/18 17:00 Serotonin 5HT-3 Antagonists Allergy Intermediate Anxiety Verified 04/27/18 17:00 Calcium Channel Blocking Allergy pounding Verified 04/27/18 17:00 Agent Dilt heart propofol Allergy Altered Verified 04/27/18 17:00 Mental Status trazodone Allergy chest Verified 04/27/18 17:00 strictures PROPOFOL Allergy Altered Uncoded 04/27/18 17:00 Mental Status stimulant Allergy Anxiety Uncoded 04/27/18 17:00 Home Medications: Home Medications Acyclovir 200 mg PO DAILY WITH MEAL 04/27/18 [History Confirmed 04/27/18] Prednisolone Acetate/Pf [Prednisolone Acet 1% Eye Drop] 5 ml OP DAILY WITH MEAL 04/27/18 [History Confirmed 04/27/18] Trifluridine 1% OPTH.ZARIA*(NF) [Viroptic 1% OPTH.ZARIA*] 1 drop .SEE ORDER DAILY WITH MEAL 04/27/18 [History Confirmed 04/27/18] PMH/Surg Hx/FS Hx/Imm Hx - Additional Past Medical History Additional PMH: Chronic LBP IBS GERD Psychological History: Anxiety Other History Of: Negative For: Anticoagulant Therapy - Surgical History Surgical History: Yes Surgery Procedure, Year, and Place: cholecystectomy, RIGHT SHOULDER, DEVIASTED SEPTUM, SHOULDICE hernia rpr 2016-STAINLESS STEEL SUTURES - Family History Known Family History: Positive: Cardiac Disease - atherosclerosis, Hypertension , Diabetes, Other - hyperlipidemia, cancer - Social History Occupation: Disabled Lives: With Family Alcohol Use: None Substance Use Type: None Smoking Status (MU): Former Smoker Length of Time of Smoking/Using Tobacco: AGE [age] When Did the Patient Quit Smoking/Using Tobacco: AGE 21 - Immunization History Most Recent Influenza Vaccination: NOT LAST YEAR Most Recent Tetanus Shot: UNSURE Most Recent Pneumonia Vaccination: no Review of Systems All Other Systems Reviewed And Are Negative: Yes Constitutional: Positive: Negative Skin: Positive: Negative Respiratory: Positive: Negative Cardiovascular: Positive: Negative Gastrointestinal: Positive: Diarrhea, Nausea Genitourinary: Positive: Negative Motor: Positive: Negative Neurovascular: Positive: Negative Musculoskeletal: Positive: Other: - Low back pain Neurological: Positive: Negative Psychological: Positive: Negative Physical Exam - Summary Physical Exam Summary: GENERAL: NAD. WDWN. No pain distress. SKIN: No rashes, sores, lesions, or open wounds. NECK: Supple. FROM. Nontender. No lymphadenopathy. CHEST: CTAB. No r/r/w. No accessory muscle use. Breathing comfortably and in no distress. CV: RRR. Pulses intact. Cap refill <2seconds ABDOMEN: Soft. NTTP. No distention or guarding. Hyperactive bowel sounds present MSK: TTP over lumbar paraspinal muscles. Pain with flexion and extension of spine. Positive SLR b/l for low back pain. Strength 5/5 B/L LEs including dorsiflexion and plantar flexion. FROM B/L LEs. No edema. NEURO: Alert. CN II-XII grossly intact. Sensations intact B/L LEs L3-S1. PSYCH: Age appropriate behavior. Triage Information Reviewed: Yes Vital Signs: Initial Vital Signs Temp 98.5 F 04/27/18 16:34 Pulse 68 04/27/18 16:34 Resp 18 04/27/18 16:34 BP 128/79 04/27/18 16:34 Pulse Ox 100 04/27/18 16:34 Vital Signs Reviewed: Yes Abd Pain Male Course/Dx - Course Course Of Treatment: Will treat for giardia as he has had this in the past and is currently using well water. Also will send for stool cultures. Regarding his chronic back pain will rx for valium given his recent flare/spasm. He says that he can only take valium and dilaudid due to med interactions and extensive allergy list. He has an appt in 3 days with his PCP - advised to keep this for a recheck of his symptoms. istop: Reference #: [id number] - Differential Dx/Clinical Impression Provider Diagnosis: Diarrhea, Low back pain Discharge - Sign-Out/Discharge Documenting (check all that apply): Patient Departure All imaging exams completed and their final reports reviewed: No Studies - Discharge Plan Condition: Stable Disposition: HOME Prescriptions: diazePAM [Valium] 2 mg PO BID PRN #6 tab MDD 2 PRN Reason: Pain metroNIDAZOLE [Flagyl] 500 mg PO BID #14 tablet Ondansetron ODT TAB* [Zofran 4 MG Odt TAB*] 4 mg PO Q8H PRN #9 tab.odt PRN Reason: Nausea Patient Education Materials: Acute Diarrhea (ED), Muscle Spasm (ED) Referrals: Dragan Samuels MD [Primary Care Provider] - Additional Instructions: If you develop a fever, shortness of breath, chest pain, new or worsening symptoms - please call your PCP or go to the ED. Please keep your appointment with your PCP in a few days for a recheck of your symptoms - Billing Disposition and Condition Condition: STABLE Disposition: Home
--- NOTE | 2018-04-29 16:25 | UC ---
- Progress Note Progress Note: 04/29/2018 Stool culture negative for Shiga toxin 1&2 and Rotavisurs negative. Lactoferrin Positive. Pt Rx metronidazole PO for Giardia. Stool culture final reports still pending. No change Aleida Lange PA-C Course/Dx - Diagnoses Provider Diagnoses: Diarrhea, Low back pain Discharge - Sign-Out/Discharge Documenting (check all that apply): Patient Departure - D/c home All imaging exams completed and their final reports reviewed: No Studies - Discharge Plan Condition: Stable Disposition: HOME Prescriptions: diazePAM [Valium] 2 mg PO BID PRN #6 tab MDD 2 PRN Reason: Pain metroNIDAZOLE [Flagyl] 500 mg PO BID #14 tablet Ondansetron ODT TAB* [Zofran 4 MG Odt TAB*] 4 mg PO Q8H PRN #9 tab.odt PRN Reason: Nausea Patient Education Materials: Acute Diarrhea (ED), Muscle Spasm (ED) Referrals: Dragan Samuels MD [Primary Care Provider] - Additional Instructions: If you develop a fever, shortness of breath, chest pain, new or worsening symptoms - please call your PCP or go to the ED. Please keep your appointment with your PCP in a few days for a recheck of your symptoms - Billing Disposition and Condition Condition: STABLE Disposition: Home
[2018-04-29 19:38] LABS: Stool Helicobacter pylori Ag Negative (Negative)
== END 2018-04-27 17:40 | disposition home or self-care (01) ==
LOC: UCEAST 16:21
DX: R19.7 Diarrhea, unspecified (principal); M54.5 Low back pain; Z88.5 Allergy status to narcotic agent; Z88.8 Allergy status to other drugs, medicaments and biological substances; Z88.1 Allergy status to other antibiotic agents; Z87.891 Personal history of nicotine dependence
CPT/HCPCS: 83630; 87045; 87046; 87077; 87338; 87425; 87899; 99212; G0463

== ENCOUNTER → 2018-05-30 17:20 | Emergency (ER) | payer MEDICARE, BC ==
[~2018-05-30 17:20] MED LIST: Acetaminophen TAB* 325 MG PO ONE; Ibuprofen TAB* 600 MG PO ONE; Ondansetron ODT TAB* 4 MG SL PRN
--- NOTE | 2018-05-30 21:54 | ED ---
Abdominal Pain/Male - HPI Summary HPI Summary: This patient is a 62 year old M presenting to [facility] accompanied by a woman with a chief complaint of sharp, left-sided rib pain since this morning. He says it felt like a needle was slowly being inserted into his left side. Patient reports nausea, subjective fever, COREA, pain with breathing, sore throat, cough, and wheezing. Patient denies diarrhea, CP, or SOB. The rib pain was initially sharp but is now sore. RX Metamucil BID. Vitals in the room: HR 54 bpm, BP 150/ 83. - History of Current Complaint Chief Complaint: EDGeneral Stated Complaint: NAUSEA/FEVER Time Seen by Provider: 05/30/18 21:12 Hx Obtained From: Patient Onset/Duration: Gradual Onset, Lasting Hours Timing: Constant Severity Currently: None Pain Intensity: 0 Pain Scale Used: 0-10 Numeric Location: Discrete At: LLQ Character: Sharp, Other: - "sore" Associated Signs And Symptoms: Positive: Fever, Cough, Nausea. Negative: Chest Pain, Diarrhea - Allergies/Home Medications Allergies/Adverse Reactions: Allergies Allergy/AdvReac Type Severity Reaction Status Date / Time codeine Allergy Severe chest Verified 05/30/18 17:43 strictures Tricyclic Compounds Allergy Severe chest Verified 05/30/18 17:43 strictures oxycodone Allergy Intermediate Agitation Verified 05/30/18 17:43 Calcium Channel Blocking Allergy pounding Verified 05/30/18 17:43 Agent Dilt heart trazodone Allergy chest Verified 05/30/18 17:43 strictures tolterodine [From Detrol] AdvReac Severe hypotension Verified 05/30/18 23:15 atomoxetine [From Strattera] AdvReac Intermediate confusion Verified 05/30/18 23 :15 morphine AdvReac Intermediate Headache Verified 05/30/18 23:15 Serotonin 5HT-3 Antagonists AdvReac Intermediate Anxiety Verified 05/30/18 23:15 propofol AdvReac Altered Verified 05/30/18 23:15 Mental Status stimulant Allergy Anxiety Uncoded 05/30/18 17:43 Home Medications: Home Medications Cozaar TAB* 50 mg PO DAILY 05/30/18 [History Confirmed 05/30/18] PMH/Surg Hx/FS Hx/Imm Hx Endocrine/Hematology History: Denies: Hx Anticoagulant Therapy, Hx Diabetes, Hx Thyroid Disease Cardiovascular History: Reports: Hx Hypertension Denies: Hx Congestive Heart Failure, Hx Pacemaker/ICD Respiratory History: Reports: Hx Chronic Bronchitis, Hx Seasonal Allergies, Other Respiratory Problems/Disorders - pleurisy, Swine flu Denies: Hx Asthma, Hx Chronic Obstructive Pulmonary Disease (COPD) GI History: Reports: Hx Diverticulosis, Hx Gall Bladder Disease, Hx Gastroesophageal Reflux Disease, Hx Gastrointestinal Bleed, Hx Irritable Bowel Denies: Hx Ulcer History: Reports: Other Problems/Disorders - post-vasectomy syndrome, epididymitis Denies: Hx Renal Disease Musculoskeletal History: Reports: Hx Arthritis, Hx Tendonitis, Other Musculoskeletal History - repetitive motion injury, spasms from fibromyalgia Sensory History: Reports: Hx Contacts or Glasses Denies: Hx Hearing Aid Opthamlomology History: Reports: Hx Contacts or Glasses Neurological History: Reports: Other Neuro Impairments/Disorders - concussion with LOC, per pt: spinal cord injury during epidural block Denies: Hx Dementia, Hx Seizures Psychiatric History: Reports: Hx Anxiety, Hx Panic Disorder - with agoriphobia/ claustrophobia, Hx Post Traumatic Stress Disorder Denies: Hx Substance Abuse - Surgical History Surgery Procedure, Year, and Place: cholecystectomy, RIGHT SHOULDER, DEVIASTED SEPTUM, SHOULDICE hernia rpr 2016-STAINLESS [employer] SUTURES Hx Anesthesia Reactions: No - Immunization History Date of Tetanus Vaccine: UTD Date of Influenza Vaccine: NO Infectious Disease History: No Infectious Disease History: Reports: Hx Shingles - 36 YEARS SYDNIE Denies: Hx Clostridium Difficile, Hx Hepatitis, Hx Human Immunodeficiency Virus (HIV), Hx of Known/Suspected MRSA, Hx Tuberculosis, Hx Known/Suspected VRE , Hx Known/Suspected VRSA, History Other Infectious Disease, Traveled Outside the [place] in Last 30 Days - Family History Known Family History: Positive: Cardiac Disease - atherosclerosis, Hypertension , Diabetes, Other - hyperlipidemia, cancer - Social History Alcohol Use: None Hx Substance Use: No Substance Use Type: Reports: None Substance Use Comment - Amount & Last Used: YESTERDAY 1/2 VALIUM AND 1/2 DILAUDED FOR BACK PAIN Hx Tobacco Use: Yes Smoking Status (MU): Former Smoker Length of Time of Smoking/Using Tobacco: AGE [age] Review of Systems Positive: Fever Positive: Sore Throat Negative: Chest Pain Respiratory: Other - pain with breathing Positive: Cough, Other - wheezing. Negative: Shortness Of Breath Positive: Abdominal Pain - left, Nausea. Negative: Diarrhea Positive: Headache All Other Systems Reviewed And Are Negative: Yes Physical Exam - Summary Physical Exam Summary: VITAL SIGNS: Reviewed. GENERAL: Patient is a well-developed and nourished male who is lying comfortable in the stretcher. Patient is not in any acute respiratory distress. HEAD AND FACE: No signs of trauma. No ecchymosis, hematomas or skull depressions. No sinus tenderness. EYES: PERRLA, EOMI x 2, No injected conjunctiva, no nystagmus. EARS: Hearing grossly intact. Ear canals and tympanic membranes are within normal limits. MOUTH: Oropharynx within normal limits. NECK: Supple, trachea is midline, no adenopathy, no JVD, no carotid bruit, no c- spine tenderness, neck with full ROM. CHEST: Symmetric, no tenderness at palpation LUNGS: Clear to auscultation bilaterally. No wheezing or crackles. CVS: Regular rate and rhythm, S1 and S2 present, no murmurs or gallops appreciated. ABDOMEN: Soft, non-tender. No signs of distention. No rebound no guarding, and no masses palpated. Bowel sounds are normal. EXTREMITIES: FROM in all major joints, no edema, no cyanosis or clubbing. NEURO: Alert and oriented x 3. No acute neurological deficits. Speech is normal and follows commands. SKIN: Dry and warm Triage Information Reviewed: Yes Vital Signs On Initial Exam: Initial Vitals Temp Pulse Resp BP Pulse Ox 98.5 F 58 16 141/98 99 05/30/18 17:34 05/30/18 17:34 05/30/18 17:34 05/30/18 17:34 05/30/18 17:34 Vital Signs Reviewed: Yes Diagnostics - Vital Signs Vital Signs Temp Pulse Resp BP Pulse Ox 05/30/18 21:08 51 99 05/30/18 21:06 46 150/83 99 05/30/18 19:56 97.5 F 57 17 111/77 99 05/30/18 17:34 98.5 F 58 16 141/98 99 - Laboratory Lab Statement: Any lab studies that have been ordered have been reviewed, and results considered in the medical decision making process. - Radiology CXR Radiology Interpretation Completed By: ED Physician Summary of Radiographic Findings: No acute process, pending official report. Re-Evaluation - Re-Evaluation First Eval Re-Evaluation Time: 23:05 Change: Improved Comment: Patient is feeling better and wants to go home. Abdominal Pain Fem Course/Dx - Course Course Of Treatment: This patient is a 62 year old M presenting to [facility] accompanied by a woman with a chief complaint of sharp, left-sided rib pain since this morning. He says it felt like a needle was slowly being inserted into his left side. Patient reports nausea, subjective fever, COREA, pain with breathing, sore throat, cough, and wheezing. Patient denies diarrhea, CP, or SOB. CXR reveals, per ED physician, no acute process. Pending official radiology report. Test results with no significant abnormalities. In the ED course the patient was given Acetaminophen and Ibuprofen. Patient will be discharged with prescription for Ondansetron and follow up from Dr. Samuels. The patient is agreeable with this plan. - Diagnoses Provider Diagnoses: Viral syndrome Discharge - Sign-Out/Discharge Documenting (check all that apply): Patient Departure - discharge Patient Received Moderate/Deep Sedation with Procedure: No - Discharge Plan Condition: Stable Disposition: HOME Prescriptions: Ondansetron HCl [Zofran] 8 mg PO TID PRN #20 tablet PRN Reason: Nausea/Vomiting Patient Education Materials: Viral Syndrome (ED) Forms: *Work Release Referrals: Dragan Samuels MD [Primary Care Provider] - 2 Days Additional Instructions: Follow up with your primary care physician in 1-3 days. RETURN TO THE EMERGENCY DEPARTMENT FOR CHANGING OR WORSENING SYMPTOMS. - Billing Disposition and Condition Condition: STABLE Disposition: Home - Attestation Statements Document Initiated by Yari: Yes Documenting Scribe: Rigoberto Guadarrama Provider For Whom Yari is Documenting (Include Credential): Dorothea Cooper MD Scribe Attestation: Rigoberto Alex scribed for Dorothea Cooper MD on 05/31/18 at 2117. Scribe Documentation Reviewed: Yes Provider Attestation: The documentation as recorded by the Rigoberto shanks accurately reflects the service I personally performed and the decisions made by , Dorothea Cooper MD Status of Scribe Document: Viewed
[2018-05-30 22:29] LABS: Influenza A Molecular NEGATIVE (Negative); Influenza B Molecular NEGATIVE (Negative)
[2018-05-30 23:27] VITALS: BP 135/82
== END | disposition home or self-care (01) ==
LOC: ED 17:20
DX: B34.9 Viral infection, unspecified (principal); R50.9 Fever, unspecified; R05 Cough; R11.0 Nausea; I10 Essential (primary) hypertension; J02.9 Acute pharyngitis, unspecified; Z87.891 Personal history of nicotine dependence
CPT/HCPCS: 71045; 99283; A9270-GY

== ENCOUNTER → 2018-06-10 15:24 | Emergency (ER) | payer BC, MEDICARE, OTHER ==
[~2018-06-10 15:24] MED LIST changes: -Acetaminophen TAB* 325 MG PO ONE; -Ibuprofen TAB* 600 MG PO ONE; +Iodixanol* (CONTRAST) 320 MG/ML 100 ML SDV IV ONE; +LORazepam INJ* 2 MG/ML 1 ML VIAL IV PUSH ONE; +NS 0.9% 1000 ML** 1,000 ML IV ONE; -Ondansetron ODT TAB* 4 MG SL PRN; +Sucralfate TAB* 1 GM PO ONE
--- NOTE | 2018-06-10 15:43 | ED ---
Shortness of Breath - HPI Summary HPI Summary: Pt is a 62 y/o male who presents to the ED c/o SOB. Hes had a viral illness the past 2 weeks. Yesterday his left calf felt hard. Pt felt SOB earlier today after getting the mail. 20 minutes ago he again became SOB after spreading salt on his driveway. Pt also c/o lightheadedness, diaphoresis, anxiety, and nausea. He denies any CP or rhinorrhea. Pt took ASA GRAIN MERCHANDISER. He states that he is recently dealing with both a suicide of a co-worker and a suicidal grandson, and this is difficult because of his PTSD. PMHx HTN, anxiety, panic attacks, bronchitis. FHx blood clots and myocarditis. He is a former smoker. - History of Current Complaint Hx Obtained From: Patient Onset/Duration: Lasting Hours - This morning Timing: Intermittent Episodes Lasting: Dyspnea At: Rest Aggrevating Factors: Other - Exertion Alleviating Factors: Nothing Associated Signs & Symptoms: Diaphoresis, Calf Pain/Swelling - Allergy/Home Medications Allergies/Adverse Reactions: Allergies Allergy/AdvReac Type Severity Reaction Status Date / Time codeine Allergy Severe chest Verified 05/30/18 17:43 strictures Tricyclic Compounds Allergy Severe chest Verified 05/30/18 17:43 strictures oxycodone Allergy Intermediate Agitation Verified 05/30/18 17:43 Calcium Channel Blocking Allergy pounding Verified 05/30/18 17:43 Agent Dilt heart trazodone Allergy chest Verified 05/30/18 17:43 strictures tolterodine [From Detrol] AdvReac Severe hypotension Verified 05/30/18 23:15 atomoxetine [From Strattera] AdvReac Intermediate confusion Verified 05/30/18 23 :15 morphine AdvReac Intermediate Headache Verified 05/30/18 23:15 Serotonin 5HT-3 Antagonists AdvReac Intermediate Anxiety Verified 05/30/18 23:15 propofol AdvReac Altered Verified 05/30/18 23:15 Mental Status stimulant Allergy Anxiety Uncoded 05/30/18 17:43 PMH/Surg Hx/FS Hx/Imm Hx Endocrine/Hematology History: Denies: Hx Anticoagulant Therapy, Hx Diabetes, Hx Thyroid Disease Cardiovascular History: Reports: Hx Hypertension Denies: Hx Congestive Heart Failure, Hx Deep Vein Thrombosis, Hx Pacemaker/ ICD Respiratory History: Reports: Hx Chronic Bronchitis, Hx Seasonal Allergies, Other Respiratory Problems/Disorders - pleurisy, Swine flu Denies: Hx Asthma, Hx Chronic Obstructive Pulmonary Disease (COPD) GI History: Reports: Hx Diverticulosis, Hx Gall Bladder Disease, Hx Gastroesophageal Reflux Disease, Hx Gastrointestinal Bleed, Hx Irritable Bowel Denies: Hx Ulcer History: Reports: Other Problems/Disorders - post-vasectomy syndrome, epididymitis Denies: Hx Renal Disease Musculoskeletal History: Reports: Hx Arthritis, Hx Tendonitis, Other Musculoskeletal History - repetitive motion injury, spasms from fibromyalgia Sensory History: Reports: Hx Contacts or Glasses Denies: Hx Hearing Aid Opthamlomology History: Reports: Hx Contacts or Glasses Neurological History: Reports: Other Neuro Impairments/Disorders - concussion with LOC, per pt: spinal cord injury during epidural block Denies: Hx Dementia, Hx Seizures Psychiatric History: Reports: Hx Anxiety, Hx Panic Disorder - with agoriphobia/ claustrophobia, Hx Post Traumatic Stress Disorder Denies: Hx Substance Abuse - Surgical History Surgery Procedure, Year, and Place: cholecystectomy, RIGHT SHOULDER, DEVIASTED SEPTUM, SHOULDICE hernia rpr 2016-STAINLESS STEEL SUTURES Hx Anesthesia Reactions: No - Immunization History Date of Tetanus Vaccine: UTD Date of Influenza Vaccine: NO Infectious Disease History: Reports: Hx Shingles - 36 YEARS SYDNIE Denies: Hx Clostridium Difficile, Hx Hepatitis, Hx Human Immunodeficiency Virus (HIV), Hx of Known/Suspected MRSA, Hx Tuberculosis, Hx Known/Suspected VRE , Hx Known/Suspected VRSA, History Other Infectious Disease - Family History Known Family History: Positive: Cardiac Disease - atherosclerosis, myocarditis, Hypertension, Diabetes, Blood Disorder - clots, Other - hyperlipidemia, cancer - Social History Alcohol Use: None Hx Substance Use: No Substance Use Type: Reports: None Substance Use Comment - Amount & Last Used: YESTERDAY 1/2 VALIUM AND 1/2 DILAUDED FOR BACK PAIN Hx Tobacco Use: Yes Smoking Status (MU): Former Smoker Length of Time of Smoking/Using Tobacco: AGE [age] Review of Systems Positive: Skin Diaphoresis Negative: Nasal Discharge Negative: Chest Pain Positive: Shortness Of Breath Positive: Nausea Positive: Other - left leg hardness Neurological: Other - Lightheadedness Positive: Anxious All Other Systems Reviewed And Are Negative: Yes Physical Exam - Summary Physical Exam Summary: Appearance: Well appearing, moderate pain distress Skin: warm, reflects adequate perfusion, light diaphoresis Head/face: normal Eyes: EOMI, DAPHNE ENT: mucous membranes moist Neck: supple, non-tender Respiratory: CTA, breath sounds present Cardiovascular: RRR, pulses symmetrical, no tenderness or edema of left calf Abdomen: non-tender, soft Bowel Sounds: present Musculoskeletal: normal, strength/ROM intact Neuro: normal, sensory motor intact, A&Ox3 Triage Information Reviewed: Yes Vital Signs Reviewed: Yes Diagnostics - Laboratory Result Diagrams: 06/10/18 15:43 06/10/18 15:43 Lab Statement: Any lab studies that have been ordered have been reviewed, and results considered in the medical decision making process. - CT Chest/Thorax CTA CT Interpretation Completed By: Radiologist Summary of CT Findings: No evidence for pulmonary embolism. No acute cardiopulmonary process evident. ED physician reviewed radiology report. - EKG 15:30 Cardiac Rate: NL - 91 bpm EKG Rhythm: Sinus Rhythm ST Segment: Normal Summary of EKG Findings: Low voltage, nl axis, nl intervals Re-Evaluation - Re-Evaluation First Eval Re-Evaluation Time: 16:26 Change: Unchanged Comment: Pt is feeling anxious and requesting medication. Second Eval Re-Evaluation Time: 16:31 Change: Improved Comment: Discussed CTA results. Pt feels better. He has a hx of exercise- induced panic attacks and believes this is one of them. Course/Dx - Course Course Of Treatment: Nurse's notes reviewed. Patient presents in extremis with significant shortness of breath without chest pain. No arrhythmia noted. O2 saturations are good. ABG shows significant alkalosis. CT of the chest shows no PE. Opponent is negative. The patient calmed with oxygen and Ativan. He relates that he has a history of PTSD and anxiety with exercised induced stress reactions in the past. He recently was exacerbated by suicidal thoughts in his grandson. He was feeling much better here and wished to discharge without any additional medications. He'll follow-up with outpatient therapist and his primary care physician. - Diagnoses Differential Diagnosis/HQI/PQRI: Positive: Airway Obstruction, Asthma, CHF, Pneumonia, Pneumothorax, Pulmonary Embolism, Pulmonary Edema Provider Diagnoses: Dyspnea, Anxiety reaction, Respiratory alkalosis, History of posttraumatic stress disorder (PTSD) - Critical Care Time Critical Care Time: 30-74 min - CCT is EXCLUSIVE of separately billable procedures. Discharge - Sign-Out/Discharge Documenting (check all that apply): Patient Departure - Discharge Patient Received Moderate/Deep Sedation with Procedure: No - Discharge Plan Condition: Improved Disposition: HOME Patient Education Materials: Panic Attack (ED) Referrals: Dragan Samuels MD [Primary Care Provider] - Additional Instructions: Call your doctor first thing in the morning to schedule prompt follow-up. Have them refer you to her therapist even if it's outside the local area. [place] are support groups. Stay well-hydrated. Return if worse, new symptoms or other concerns. Avoid stressful situations. - Billing Disposition and Condition Condition: IMPROVED Disposition: Home - Attestation Statements Document Initiated by Anjele: Yes Documenting Scribe: Sandra Cox Provider For Whom Russellibe is Documenting (Include Credential): Jonn Stevens MD Scribe Attestation: Sandra Alex scrbrittnied for Jonn Stevens MD on 06/10/18 at 1826. Scribe Documentation Reviewed: Yes Provider Attestation: The documentation as recorded by the russellibSandra garza accurately reflects the service I personally performed and the decisions made by Jonn gary MD Status of Scribe Document: Viewed
[2018-06-10 15:56] LABS: ABS Basophils 0 10^3/ul (0-0.2); ABS Eosinophils 0.1 10^3/ul (0-0.6); ABS Lymphocytes 1.2 10^3/ul (1.0-4.8); ABS Monocytes 0.3 10^3/ul (0-0.8); ABS Neutrophils 2.2 10^3/ul (1.5-7.7); ABS Nucleated RBC 0 10^3/ul; Eosinophil % 2.2 %; Hematocrit 43 % (42-52); Hemoglobin 14.9 g/dl (14.0-18.0); Lymphocyte % 31.7 %; Mean Corpuscular HGB Conc 35 g/dl (31-36); Mean Corpuscular Hemoglobin 30 pg (27-31); Mean Corpuscular Volume 87 fL (80-94); Mean Platelet Volume 8.5 fL (7.4-10.4); Nucleated Red Blood Cells % 0.1; Platelet Count 167 10^3/ul (150-450); Red Blood Count 4.95 10^6/ul (4.00-5.40); Red Cell Distribution Width 13 % (10.5-15); White Blood Count 3.9 10^3/ul (3.5-10.8)
[2018-06-10 16:02] LABS: INR 0.92 (0.77-1.02)
[2018-06-10 16:10] LABS: Influenza A Molecular NEGATIVE (Negative); Influenza B Molecular NEGATIVE (Negative)
[2018-06-10 16:13] LABS: ALT 29 U/L (7-52); AST 27 U/L (13-39); Albumin 4.5 g/dL (3.2-5.2); Albumin/Globulin Ratio 1.7 (1-3); Alkaline Phosphatase 56 U/L (34-104); Anion Gap 12 mmol/L (2-11); Blood Urea Nitrogen 17 mg/dL (6-24); C Reactive Protein < 1.00 mg/L (<8.01); CO2 Carbon Dioxide 22 mmol/L (22-32); Calcium 9.6 mg/dL (8.6-10.3); Chloride 103 mmol/L (101-111); EGFR African American 85.1 (>60); EGFR Non-African American 70.3 (>60); Globulin 2.7 g/dL (2-4); Glucose 112 mg/dL (70-100); Potassium 3.9 mmol/L (3.5-5.0); Sodium 137 mmol/L (135-145); Total Protein 7.2 g/dL (6.4-8.9)
[2018-06-10 17:31] VITALS: BP 143/97
== END | disposition home or self-care (01) ==
LOC: ED 15:24
DX: R06.00 Dyspnea, unspecified (principal); F41.1 Generalized anxiety disorder; E87.3 Alkalosis; F43.10 Post-traumatic stress disorder, unspecified; Z88.5 Allergy status to narcotic agent; Z88.8 Allergy status to other drugs, medicaments and biological substances; Z87.891 Personal history of nicotine dependence
CPT/HCPCS: 36415; 71275; 80053; 82803; 83605; 83880; 84484; 85025; 85610; 86140; 87040; 93005; 96374; 99283; A9270-GY; J2060; Q9967

== ENCOUNTER 2018-10-20 15:14 | Emergency (ER) | payer MEDICARE, BC ==
[2018-10-20 15:31] VITALS: BP 128/91
--- NOTE | 2018-10-20 15:46 | UC ---
Skin Complaint HPI - HPI Summary HPI Summary: 63 yo male presents with puncture wound to right middle finger. He tells me that about 2-3 days ago he was working with thistles and plants with thorns. He was wearing gloves, but was poked through the gloves several times - one of which was in his right middle finger pad. Has had slight pain in the area since. He is concerned there is something embedded within his skin. His tetanus is UTD. - History of Current Complaint Chief Complaint: UCSkin Time Seen by Provider: 10/20/18 15:45 Stated Complaint: THORN IN FINGER Hx Obtained From: Patient Onset/Duration: Sudden Onset Onset Severity: Moderate Current Severity: Mild Pain Intensity: 1 Pain Scale Used: 0-10 Numeric - Allergy/Home Medications Allergies/Adverse Reactions: Allergies Allergy/AdvReac Type Severity Reaction Status Date / Time codeine Allergy Severe chest Verified 10/20/18 15:31 strictures Tricyclic Compounds Allergy Severe chest Verified 10/20/18 15:31 strictures oxycodone Allergy Intermediate Agitation Verified 10/20/18 15:31 Calcium Channel Blocking Allergy pounding Verified 10/20/18 15:31 Agent Dilt heart trazodone Allergy chest Verified 10/20/18 15:31 strictures tolterodine [From Detrol] AdvReac Severe hypotension Verified 10/20/18 15:31 atomoxetine [From Strattera] AdvReac Intermediate confusion Verified 10/20/18 15 :31 morphine AdvReac Intermediate Headache Verified 10/20/18 15:31 Serotonin 5HT-3 Antagonists AdvReac Intermediate Anxiety Verified 10/20/18 15:31 propofol AdvReac Altered Verified 10/20/18 15:31 Mental Status stimulant Allergy Anxiety Uncoded 10/20/18 15:31 Home Medications: Home Medications Diazepam TAB(*) [Valium TAB(*)] PRN 10/20/18 [History] Opioid* PRN 10/20/18 [History] PMH/Surg Hx/FS Hx/Imm Hx Cardiovascular History: Hypertension GI/ History: Gastroesophageal Reflux Psychological History: Anxiety Other History Of: Negative For: Anticoagulant Therapy - Surgical History Surgical History: Yes Surgery Procedure, Year, and Place: cholecystectomy, RIGHT SHOULDER, DEVIATED SEPTUM, Lt INGUINAL hernia repair 2015-STAINLESS STEEL SUTURES, RIGHT HERNIA REPAIR (2 HERNIAS) 2018 - Family History Known Family History: Positive: Cardiac Disease - atherosclerosis, myocarditis, Hypertension, Diabetes, Blood Disorder - clots, Other - hyperlipidemia, cancer - Social History Occupation: Employed Full-time Lives: With Family Alcohol Use: None Substance Use Type: None Substance Use Comment - Amount & Last Used: YESTERDAY 1/2 VALIUM AND 1/2 DILAUDED FOR BACK PAIN Smoking Status (MU): Former Smoker Length of Time of Smoking/Using Tobacco: AGE [age] When Did the Patient Quit Smoking/Using Tobacco: AGE 21 - Immunization History Most Recent Influenza Vaccination: NOT LAST YEAR Most Recent Tetanus Shot: UNSURE Most Recent Pneumonia Vaccination: no Review of Systems All Other Systems Reviewed And Are Negative: Yes Constitutional: Positive: Negative Skin: Positive: Other - Puncture wound right middle finger Respiratory: Positive: Negative Cardiovascular: Positive: Negative Neurovascular: Positive: Negative Musculoskeletal: Positive: Negative Neurological: Positive: Negative Psychological: Positive: Negative Physical Exam - Summary Physical Exam Summary: GENERAL: NAD. WDWN. No pain distress. SKIN: RIGHT middle finger: pad with 2mm puncture wound. No FB appreciated. NTTP. No bleeding, drainage, erythema, or edema. CHEST: No accessory muscle use. Breathing comfortably and in no distress. CV: Pulses intact. Cap refill <2seconds NEURO: Alert. PSYCH: Age appropriate behavior. Triage Information Reviewed: Yes Vital Signs: Initial Vital Signs Temp 98.3 F 10/20/18 15:21 Pulse 60 10/20/18 15:21 Resp 16 10/20/18 15:21 BP 128/91 10/20/18 15:21 Pulse Ox 99 10/20/18 15:21 Vital Signs Reviewed: Yes Course/Dx - Course Course Of Treatment: Pt is concerned there is something embedded within the skin. The puncture wound was explored with splinter forceps and no FB was appreciated. The site was irrigated under pressure with NS. Bandaged with a band-aid. Advised to change the band-aid daily until well healed. - Diagnoses Provider Diagnosis: Puncture wound of finger Discharge - Sign-Out/Discharge Documenting (check all that apply): Patient Departure All imaging exams completed and their final reports reviewed: No Studies - Discharge Plan Condition: Stable Disposition: HOME Patient Education Materials: Puncture Wound (DC) Referrals: Dragan Samuels MD [Primary Care Provider] - Additional Instructions: If you develop a fever, shortness of breath, chest pain, new or worsening symptoms - please call your PCP or go to the ED immediately. 1) There was no evidence of any foreign body in your finger today 2) Please apply a band-aid to the area until well healed - Billing Disposition and Condition Condition: STABLE Disposition: Home - Attestation Statements Provider Attestation: Per institutional requirements, I have reviewed the chart, however, I was not consulted specifically or made aware of this patient by the midlevel provider. I did not personally evaluate, interact with , or disposition this patient.
== END 2018-10-20 16:26 | disposition home or self-care (01) ==
LOC: UCEAST 15:14
DX: S61.230A Puncture wound without foreign body of right index finger without damage to nail, initial encounter (principal); W45.8XXA Other foreign body or object entering through skin, initial encounter; Y93.H2 Activity, gardening and landscaping; Y92.017 Garden or yard in single-family (private) house as the place of occurrence of the external cause; Y99.8 Other external cause status; I10 Essential (primary) hypertension; K21.9 Gastro-esophageal reflux disease without esophagitis; F41.9 Anxiety disorder, unspecified; Z88.5 Allergy status to narcotic agent; Z87.891 Personal history of nicotine dependence
CPT/HCPCS: 99212; G0463

== ENCOUNTER 2019-01-20 08:55 | Emergency (ER) | payer MEDICARE, BC ==
[2019-01-20 09:18] VITALS: BP 140/95
--- NOTE | 2019-01-20 10:27 | UC ---
UC General HPI - HPI Summary HPI Summary: 63 yo male presents with pain. He tells me that he has a history of chronic issues including fibromyalgia, b/l knee pain, continued post op right groin pain , and low back pain. He has seen multiple specialists, mostly in [place], and continues to see physical therapy. He tells me that he saw Dr. Morillo in his pcp 's office last week for this issue and was apparently offered pain medication, but pt declined as it "wasn't that bad". Today he tells me that he aches all over without specific pain. He is requesting dilaudid. Denies fever, trouble urinating, saddle anesthesia, or loss of bowel/bladder control. - History of Current Complaint Chief Complaint: UCGeneralIllness Stated Complaint: PERSONAL Time Seen by Provider: 01/20/19 09:42 Hx Obtained From: Patient Onset Severity: Moderate Current Severity: Moderate Pain Intensity: 7 - Allergy/Home Medications Allergies/Adverse Reactions: Allergies Allergy/AdvReac Type Severity Reaction Status Date / Time codeine Allergy Severe chest Verified 01/20/19 09:26 strictures Tricyclic Compounds Allergy Severe chest Verified 01/20/19 09:26 strictures oxycodone Allergy Intermediate Agitation Verified 01/20/19 09:26 Calcium Channel Blocking Allergy pounding Verified 01/20/19 09:26 Agent Dilt heart trazodone Allergy chest Verified 01/20/19 09:26 strictures tolterodine [From Detrol] AdvReac Severe hypotension Verified 01/20/19 09:26 atomoxetine [From Strattera] AdvReac Intermediate confusion Verified 01/20/19 09 :26 morphine AdvReac Intermediate Headache Verified 01/20/19 09:26 Serotonin 5HT-3 Antagonists AdvReac Intermediate Anxiety Verified 01/20/19 09:26 propofol AdvReac Altered Verified 01/20/19 09:26 Mental Status stimulant Allergy Anxiety Uncoded 01/20/19 09:26 Home Medications: Home Medications Hydromorphone 2 mg/ml Vial 2 mg PO 01/20/19 [History] Losartan TAB* [Cozaar TAB*] 50 mg PO DAILY 01/20/19 [History Confirmed 01/20/19] PMH/Surg Hx/FS Hx/Imm Hx - Additional Past Medical History Additional PMH: Fibromyalgia Chronic pain PTSD Cardiovascular History: Hypertension Other History Of: Negative For: Anticoagulant Therapy - Surgical History Surgical History: Yes Surgery Procedure, Year, and Place: cholecystectomy, RIGHT SHOULDER, DEVIATED SEPTUM, Lt INGUINAL hernia repair 2016-STAINLESS STEEL SUTURES, RIGHT HERNIA REPAIR (2 HERNIAS) 2019 - Family History Known Family History: Positive: Cardiac Disease - atherosclerosis, myocarditis, Hypertension, Diabetes, Blood Disorder - clots, Other - hyperlipidemia, cancer - Social History Lives: With Family Alcohol Use: None Substance Use Type: None Smoking Status (MU): Former Smoker Length of Time of Smoking/Using Tobacco: AGE [age] When Did the Patient Quit Smoking/Using Tobacco: AGE 21 - Immunization History Most Recent Influenza Vaccination: NOT LAST YEAR Most Recent Tetanus Shot: UNSURE Most Recent Pneumonia Vaccination: no Review of Systems All Other Systems Reviewed And Are Negative: No Constitutional: Positive: Negative Skin: Positive: Negative Respiratory: Positive: Negative Cardiovascular: Positive: Negative Gastrointestinal: Positive: Negative Genitourinary: Positive: Negative Motor: Positive: Negative Neurovascular: Positive: Negative Musculoskeletal: Positive: Other: - Generalized pain Neurological: Positive: Negative Psychological: Positive: Negative Physical Exam - Summary Physical Exam Summary: GENERAL: NAD. WDWN. No pain distress. SKIN: No rashes, sores, or open wounds. NECK: Supple. Nontender. No lymphadenopathy. CHEST: CTAB. No r/r/w. No accessory muscle use. Breathing comfortably and in no distress. CV: RRR. Pulses intact. Brisk cap refill. ABDOMEN: Soft. NTTP. No CVA tenderness. Bowel sounds present MSK: FROM and 5/5 strength throughout. No edema. NEURO: Alert. PSYCH: Age appropriate behavior. Triage Information Reviewed: Yes Vital Signs: Initial Vital Signs Temp 98 F 01/20/19 09:14 Pulse 71 01/20/19 09:14 Resp 19 01/20/19 09:14 BP 140/95 01/20/19 09:14 Pulse Ox 99 01/20/19 09:14 Vital Signs Reviewed: Yes Course/Dx - Course Course Of Treatment: I discussed with pt that his pain is chronic in nature and advised appropriate follow up with his specialists and PCP. I offered him short term tramadol, norco, or percocet, but he states that he has bad reactions to all of these and states the only thing that works is dilaudid and is requesting this today. I told him that I would not be prescribing dilaudid for him today and he states that he has been taking this since 2008 from various physicians - I recommended that he follow up with those physicians. Pt then stated that if I am not going to prescribe him dilaudid then I am "wasting his time" and he walked out. - Diagnoses Provider Diagnosis: Chronic pain Discharge ED - Sign-Out/Discharge Documenting (check all that apply): Patient Departure All imaging exams completed and their final reports reviewed: No Studies - Discharge Plan Condition: Stable Disposition: ELOPEMENT Referrals: Dragan Samuels MD [Primary Care Provider] - Additional Instructions: Please follow up with your primary doctor as soon as possible for your chronic pain - Billing Disposition and Condition Condition: STABLE Disposition: Elopement - Attestation Statements Provider Attestation: I was available for consult. This patient was seen by the ZARINA. The patient was not presented to, seen by, or examined by me. -Bonny
== END 2019-01-20 10:23 | disposition home or self-care (01) ==
LOC: UCEAST 08:55
DX: G89.29 Other chronic pain (principal); M54.5 Low back pain; M25.561 Pain in right knee; M25.562 Pain in left knee; G89.28 Other chronic postprocedural pain; R10.30 Lower abdominal pain, unspecified; M79.7 Fibromyalgia; I10 Essential (primary) hypertension; Z88.8 Allergy status to other drugs, medicaments and biological substances; Z88.5 Allergy status to narcotic agent; Z88.6 Allergy status to analgesic agent; Z79.899 Other long term (current) drug therapy; Z87.891 Personal history of nicotine dependence
CPT/HCPCS: 99211; G0463

== ENCOUNTER 2020-06-07 06:36 | Observation (INO) ==
[2020-06-07 07:32] LABS: ABS Eosinophils 0.1 10^3/ul (0-0.6); ABS Lymphocytes 0.9 10^3/ul (1.0-4.8); ABS Monocytes 0.2 10^3/ul (0-0.8); ABS Neutrophils 1.2 10^3/ul (1.5-7.7); Hematocrit 37 % (42-52); Hemoglobin 12.6 g/dL (14.0-18.0); Mean Corpuscular HGB Conc 34 g/dL (31-36); Mean Corpuscular Hemoglobin 30 pg (27-31); Mean Corpuscular Volume 88 fL (80-94); Mean Platelet Volume 8.4 fL (7.4-10.4); Nucleated Red Blood Cells % 0.1; Platelet Count 130 10^3/uL (150-450); Red Cell Distribution Width 13 % (10-15); White Blood Count 2.4 10^3/uL (3.5-10.8)
[2020-06-07 07:51] LABS: Albumin 3.8 g/dL (3.2-5.2); Albumin/Globulin Ratio 1.6 (1-3); BUN/Creatinine Ratio 14.8 (8-20); Calcium 8.5 mg/dL (8.6-10.3); EGFR African American 82.8 (>60); EGFR Non-African American 68.4 (>60); Globulin 2.4 g/dL (2-4); Potassium 3.8 mmol/L (3.5-5.0); Total Bilirubin 0.7 mg/dL (0.2-1.0); Total Protein 6.2 g/dL (6.4-8.9)
[2020-06-07 12:22] LABS: C Reactive Protein 1.42 mg/L (<8.01)
[2020-06-07 12:41] LABS: TSH Ultra Thyroid Stim Horm 2.28 mcIU/mL (0.34-5.60)
[2020-06-07] MEDS ORDERED: Albuterol HFA INHALER 8 gm MDI INH ONE (13:30)
[2020-06-07] MEDS ORDERED: Albuterol HFA INHALER 8 gm MDI INH PRN (15:05)
[2020-06-07] MEDS: Heparin 5000 UNITS/ML 1 mL VIAL SUBCUT SCH ×2 (16:41→23:39)
[2020-06-07 19:39] LABS: Influenza A Molecular Negative (Negative); Influenza B Molecular Negative (Negative)
[2020-06-08] MEDS: Heparin 5000 UNITS/ML 1 mL VIAL SUBCUT SCH ×2 (06:31→13:15)
[2020-06-08 08:11] LABS: ABS Eosinophils 0.1 10^3/ul (0-0.6); ABS Monocytes 0.2 10^3/ul (0-0.8); ABS Neutrophils 1.7 10^3/ul (1.5-7.7); Eosinophil % 2.6 %; Hematocrit 42 % (42-52); Hemoglobin 14.1 g/dL (14.0-18.0); Lymphocyte % 32.8 %; Mean Corpuscular HGB Conc 34 g/dL (31-36); Mean Corpuscular Hemoglobin 30 pg (27-31); Mean Corpuscular Volume 88 fL (80-94); Mean Platelet Volume 8.7 fL (7.4-10.4); Platelet Count 139 10^3/uL (150-450); Red Blood Count 4.73 10^6 /uL (4.18-5.48); Red Cell Distribution Width 14 % (10-15)
[2020-06-08 08:25] LABS: BUN/Creatinine Ratio 14.3 (8-20); Calcium 8.8 mg/dL (8.6-10.3); EGFR African American 85.5 (>60); EGFR Non-African American 70.7 (>60); HDL Cholesterol 37.2 mg/dL; Potassium 4.1 mmol/L (3.5-5.0)
[2020-06-08] MEDS ORDERED: Aspirin EC 81 mg TAB.EC (enteric coated) PO SCH (09:00)
[2020-06-08 13:38] VITALS: BP 127/78
== END 2020-06-08 15:20 | disposition home or self-care (01) ==
LOC: ED 06:36 → MED 06:36
PROVIDERS: ADMIT Internal Medicine; ATTEND Internal Medicine